=== PATIENT | female | born 1970 ===

== ENCOUNTER 2018-01-22 15:06 | Emergency (ER) | payer SELFPAY ==
[2018-01-22 15:33] VITALS: TEMP 97.8
[2018-01-22] MEDS ORDERED: Alum-Mag Hydrox-Simethicone Susp (30 mL) PO STA (15:36)
[2018-01-22] MEDS ORDERED: Sodium Chloride 0.9% 1,000 ML IV STA (15:36)
[2018-01-22 15:42] LABS: HCG,QUALITATIVE URINE NEGATIVE (NEGATIVE)
[2018-01-22] MEDS ORDERED: Sodium Chloride 0.9% 1,000 ML ONE (15:44)
[2018-01-22] MEDS ORDERED: Aluminum Hydroxide/Magnesium Hydroxide Susp (30 mL) ONE (15:44)
[2018-01-22 15:49] LABS: SQUAMOUS EPITHIAL 1 /hpf (0-5); URINE BILIRUBIN NEGATIVE (NEGATIVE); URINE BLOOD 1+ (NEGATIVE); URINE CLARITY Clear (Clear); URINE COLOR Amber (YELLOW); URINE GLUCOSE (UA) NORMAL (Normal); URINE HYALINE CAST >20 /lpf (0-2); URINE LEUKOCYTE ESTERASE NEG Leu/uL (Negative); URINE PROTEIN 1+ mg/dL (NEGATIVE)
[2018-01-22 15:57] LABS: BASO % 0.3 % (0.0-2.0); EOS # 0.1 K/uL (0.0-0.7); EOS % 1.4 % (0.0-4.0); HEMOGLOBIN 14.5 g/dL (11.0-16.0); LYMPH # 2.1 K/uL (1.0-4.3); LYMPH % 23.8 % (20.0-40.0); MEAN CELL VOLUME 86.6 fL (81.0-99.0); MEAN CORPUSCULAR HEMOGLOBIN 29.1 pg (27.0-31.0); MEAN CORPUSCULAR HGB CONC 33.6 g/dL (33.0-37.0); MEAN PLATELET VOLUME 9.4 fL (7.2-11.7); MONO # 0.3 K/uL (0.0-0.8); MONO % 3.6 % (0.0-10.0); NEUT # 6.3 K/uL (1.8-7.0); NEUT % 70.9 % (50.0-75.0); NRBC % 0.1 % (0.0-2.0); RBC 4.99 Mil/uL (3.80-5.20); RED CELL DISTRIBUTION WIDTH 12.8 % (11.5-14.5); WHITE BLOOD COUNT 8.8 K/uL (4.8-10.8)
[2018-01-22 16:18] LABS: ALB/GLOB RATIO 1.4 (1.0-2.1); ALBUMIN 4.6 g/dL (3.5-5.0); ALT/SGPT 68 U/L (9-52); AST/SGOT 34 U/L (14-36); BLOOD UREA NITROGEN 13 mg/dL (7-17); CALCIUM 9.4 mg/dl (8.6-10.4); GFR NON-AFRICAN AMERICAN > 60; LIPASE 121 U/L (23-300)
--- NOTE | 2018-01-22 16:31 | C.PDOC ---
History Of Present Illness 47 y/o female with history of HTN presents to ED with c/o diffuse abdominal pain intermittently for 2 days associated with nausea, x4 episodes of non bloody and non bilious vomiting. Patient denies fever, chills, chest pain, sob, diarrhea, constipation, dysuria or any other complaints at this time. Time Seen by Provider: 01/22/18 15:10 Chief Complaint (Nursing): Abdominal Pain History Per: Patient History/Exam Limitations: no limitations Onset/Duration Of Symptoms: Days Current Symptoms Are (Timing): Still Present Location Of Pain/Discomfort: Diffuse Past Medical History Reviewed: Historical Data, Nursing Documentation, Vital Signs Vital Signs: Last Vital Signs Temp 97.8 F 01/22/18 15:32 Pulse 66 01/22/18 15:32 Resp 20 01/22/18 15:32 BP 133/83 01/22/18 15:32 Pulse Ox 98 01/22/18 15:32 - Medical History PMH: HTN Surgical History: No Surg Hx Family History: States: No Known Family Hx - Social History Hx Alcohol Use: No Hx Substance Use: No - Immunization History Hx Tetanus Toxoid Vaccination: No Hx Influenza Vaccination: No Hx Pneumococcal Vaccination: No Review Of Systems Except As Marked, All Systems Reviewed And Found Negative. Constitutional: Negative for: Fever, Chills Gastrointestinal: Positive for: Nausea, Vomiting, Abdominal Pain Physical Exam - Physical Exam Additional Physical Exam Comments: Constitutional: No acute distress. Obese appearing Head: Normocephalic. Atraumatic. Eyes: PERRL. ENT: Moist mucous membranes. Neck: Supple. Cardiovascular: Regular rate. Radial pulse 2+ bilaterally. Chest: No tenderness. Respiratory: Clear to auscultation bilaterally. GI: Soft. diffuse abdomen tenderness more on epigastric and RLQ. Back: No CVA tenderness. Musculoskeletal: No tenderness or swelling of extremities. Skin: No rash. Neurologic: Alert, no focal deficit ED Course And Treatment - Laboratory Results Result Diagrams: 01/22/18 15:42 01/22/18 15:42 O2 Sat by Pulse Oximetry: 98 (RA) Pulse Ox Interpretation: Normal Medical Decision Making Medical Decision Making: Plan: CT abd/pelvis with IV contrast, Maalox, Pepcid, Zofran, IV fluids, Urine culture CT scan abd/pelvis IMPRESSION: Moderate segmental dilatation of fluid-filled mid small bowel loop in the left mid abdomen with fecalization of small bowel contents. Fluid in the ascending and transverse colon and distal descending colon. Findings may represent nonspecific acute infectious/inflammatory enterocolitis. No bowel obstruction. Sigmoid diverticulosis without CT evidence for acute diverticulitis. Moderate hepatomegaly and fatty liver. Small sliding hiatal hernia. Potassium supplemented. Discharged home, f/u PMD, return to ED for worsening pain, fever, vomiting, or any other problem. Disposition - Disposition Referrals: [facility] [Outside] Disposition: HOME/ ROUTINE Disposition Time: 18:00 Condition: STABLE Prescriptions: levoFLOXacin [Levaquin] 1 tab PO DAILY #10 tab Metronidazole [Flagyl] 500 mg PO Q8 #30 tab Instructions: Diarrhea in Adolescents and Adults Forms: [facility] (Albanian) - Clinical Impression Clinical Impression: Enteritis - Scribe Statement The provider has reviewed the documentation as recorded by the Tarynibsergio Orellana All medical record entries made by the Tarynibsergio were at my direction and personally dictated by me. I have reviewed the chart and agree that the record accurately reflects my personal performance of the history, physical exam, medical decision making, and the department course for this patient. I have also personally directed, reviewed, and agree with the discharge instructions and disposition.
[2018-01-22] MEDS ORDERED: Iohexol 300 100 ML IJ ONE (17:09)
--- NOTE | 2018-01-22 17:57 | CT ---
Date of service: 01/22/2018 PROCEDURE: CT Abdomen and Pelvis with contrast HISTORY: abd pain, vomiting, epigastric/RLQ tenderness COMPARISON: None available. TECHNIQUE: CT scan of the abdomen and pelvis was performed after administration of intravenous contrast. Oral contrast was not administered. Coronal and sagittal reformatted images were obtained. Contrast dose: Radiation dose: Total exam DLP = 1063.52 mGy-cm. This CT exam was performed using one or more of the following dose reduction techniques: Automated exposure control, adjustment of the mA and/or kV according to patient size, and/or use of iterative reconstruction technique. FINDINGS: LOWER THORAX: The visualized lungs are clear. LIVER: Moderate hepatomegaly and fatty liver. No gross lesion or ductal dilatation. GALLBLADDER AND BILE DUCTS: Surgically absent. PANCREAS: Normal in size with homogeneous enhancement. No gross lesion or ductal dilatation. SPLEEN: Normal in size and appearance. ADRENALS: No discrete nodule. KIDNEYS AND URETERS: Normal in size with homogeneous enhancement. No hydronephrosis. No solid mass. VASCULATURE: No aortic aneurysm. BOWEL: Evaluation of the bowel is limited in the absence of oral contrast. The proximal small bowel loops are normal in caliber. There is segmental dilatation of fluid-filled mid small bowel loop in the left mid abdomen with fecalization of small bowel contents. The distal small bowel loops are normal in caliber. There is fluid in the ascending and transverse colon. There fluid in the distal descending colon. There is sigmoid diverticulosis without CT evidence for acute diverticulitis P APPENDIX: Normal appendix. PERITONEUM: No free fluid. No free air. LYMPH NODES: No enlarged lymph nodes. BLADDER: Well distended and normal in appearance. REPRODUCTIVE: The uterus is surgically absent. BONES: No acute fracture. There is diffuse bone demineralization and multilevel degenerative changes in the spine. OTHER FINDINGS: There is a small sliding hiatal hernia. IMPRESSION: Moderate segmental dilatation of fluid-filled mid small bowel loop in the left mid abdomen with fecalization of small bowel contents. Fluid in the ascending and transverse colon and distal descending colon. Findings may represent nonspecific acute infectious/inflammatory enterocolitis. No bowel obstruction. Sigmoid diverticulosis without CT evidence for acute diverticulitis. Moderate hepatomegaly and fatty liver. Small sliding hiatal hernia.
[2018-01-22 18:08] VITALS: BP 167/92; PULSE 76; RESP 18
[2018-01-22] MEDS ORDERED: Potassium Chloride 20 mEq ER Tab PO STA (18:10)
[2018-01-22 18:12] VITALS: O2SAT 98
[2018-01-22] MEDS ORDERED: Potassium Chloride 20 mEq ER Tab PO ONE (18:19)
== END 2018-01-22 18:33 | disposition home or self-care (01) ==
LOC: C.ER 15:06
DX: K52.9 Noninfective gastroenteritis and colitis, unspecified (principal); I10 Essential (primary) hypertension
CPT/HCPCS: 74177; 80053; 81001; 83690; 84703; 85025; 87086; 96361; 96374; 96375; 99285; J2405; J7030; Q9967

== ENCOUNTER 2018-01-23 12:05 | Inpatient (IN) | payer SELFPAY ==
--- NOTE | 2018-01-23 12:46 | C.PDOC ---
History Of Present Illness 47 y/o female presents to the ER complaining of diffuse abdominal pain which has been present for the past 3 days. I evaluated patient in [facility] for abdominal pain and vomiting yesterday. At the time, she had unremarkable bloodwork and CT Scan which showed diverticulosis with no other acute findings. Patient states that she continues to have abdominal pain. Patient is also complaining of rectal bleeding which began last night. Currently, patient denies having fever, chills, nausea, and vomiting. Time Seen by Provider: 01/23/18 12:17 Chief Complaint (Nursing): GI Problem History Per: Patient History/Exam Limitations: no limitations Onset/Duration Of Symptoms: Days Current Symptoms Are (Timing): Still Present Severity: Moderate Past Medical History Reviewed: Historical Data, Nursing Documentation, Vital Signs Vital Signs: Last Vital Signs Temp 98.2 F 01/23/18 12:09 Pulse 84 01/23/18 12:09 Resp 16 01/23/18 12:09 BP 123/63 01/23/18 12:09 Pulse Ox 100 01/23/18 12:09 - Medical History PMH: HTN Other Surgeries: Hx of surgeries Family History: States: No Known Family Hx - Social History Hx Alcohol Use: No Hx Substance Use: No - Immunization History Hx Tetanus Toxoid Vaccination: No Hx Influenza Vaccination: No Hx Pneumococcal Vaccination: No Review Of Systems Except As Marked, All Systems Reviewed And Found Negative. Constitutional: Negative for: Fever, Chills Gastrointestinal: Positive for: Abdominal Pain, Hematochezia. Negative for: Nausea, Vomiting Physical Exam - Physical Exam Additional Physical Exam Comments: Constitutional: No acute distress. Head: Normocephalic. Atraumatic. Eyes: PERRL. ENT: Moist mucous membranes. Neck: Supple. Cardiovascular: Regular rate. Radial pulse 2+ bilaterally. Chest: No tenderness. Respiratory: Clear to auscultation bilaterally. GI: Soft. Nontender. Nondistended. Rectal: Gross Red Blood Back: No CVA tenderness. Musculoskeletal: No tenderness or swelling of extremities. Skin: No rash. Neurologic: Alert, no focal deficit. ED Course And Treatment - Laboratory Results Result Diagrams: 01/23/18 20:35 01/23/18 13:00 ECG: Interpreted By Me, Viewed By Me ECG Rhythm: Sinus Rhythm ECG Interpretation: Normal Interpretation Of ECG: NSR with no ST elevations/depressions Rate From EC O2 Sat by Pulse Oximetry: 100 (RA) Pulse Ox Interpretation: Normal Medical Decision Making Medical Decision Making: Plan: --Labs Dr. Mcdowell accepts patient to hospitalist service. Disposition - Disposition Disposition: HOSPITALIZED Disposition Time: 14:12 Condition: GUARDED - Clinical Impression Clinical Impression: Gastrointestinal hemorrhage - Scribe Statement The provider has reviewed the documentation as recorded by the Mel Briceño Provider Attestation: All medical record entries made by the Tarynibsergio were at my direction and personally dictated by me. I have reviewed the chart and agree that the record accurately reflects my personal performance of the history, physical exam, medical decision making, and the department course for this patient. I have also personally directed, reviewed, and agree with the discharge instructions and disposition.
[2018-01-23 13:04] LABS: BASO % 0.3 % (0.0-2.0); EOS % 0.2 % (0.0-4.0); HEMOGLOBIN 14.8 g/dL (11.0-16.0); LYMPH # 2.2 K/uL (1.0-4.3); LYMPH % 16.5 % (20.0-40.0); MEAN CELL VOLUME 85.1 fL (81.0-99.0); MEAN CORPUSCULAR HEMOGLOBIN 28.9 pg (27.0-31.0); MEAN PLATELET VOLUME 9.4 fL (7.2-11.7); MONO # 0.8 K/uL (0.0-0.8); NEUT # 10.4 K/uL (1.8-7.0); NRBC % 0.1 % (0.0-2.0); RBC 5.11 Mil/uL (3.80-5.20); RED CELL DISTRIBUTION WIDTH 12.9 % (11.5-14.5)
[2018-01-23 13:05] LABS: WHITE BLOOD COUNT 13.5 K/uL (4.8-10.8)
[2018-01-23 13:14] LABS: INR 1.1; PROTHROMBIN TIME 11.9 SECONDS (9.7-12.2)
[2018-01-23 13:17] LABS: ALB/GLOB RATIO 1.3 (1.0-2.1); ALBUMIN 4.4 g/dL (3.5-5.0); ALT/SGPT 62 U/L (9-52); AST/SGOT 27 U/L (14-36); BLOOD UREA NITROGEN 11 mg/dL (7-17); CALCIUM 9.2 mg/dl (8.6-10.4); GFR NON-AFRICAN AMERICAN > 60; LIPASE 92 U/L (23-300)
--- NOTE | 2018-01-23 15:14 | CP.PCM.HP ---
History of Present Illness - History of Present Illness History of Present Illness: PGY-[address] and Physical [address] Mcdowell Patient is a 47 year old female with PMHx HTN, cholecystitis, who presents with nausea, abdominal, diarrhea, and rectal bleeding. Patient presented to [facility] ED on 01/22 with abdominal pain and NBNB vomiting. Patient was prescribed levofloxacin and flagyl and sent home, though did not fill the prescriptions prior to returning to ED today. After leaving ED patient states she continued t o have pain and went to use the toilet and noticed red blood. Patient went to PMD who performed a rectal exam and copious bright red blood came out and patient was subsequently sent to ED. She continues to have dark brown loose stools with jelly-like consistency, but also will have bouts where she goes to the toilet and only blood comes out. Patient states the blood is more light pink than dark red. She no longer feels nauseous and has not vomited, but does continue to have abdominal pain that is most severe in the upper abdomen, but diffuse. Patient has abdominal pain while moving bowels, but does not have any pain in the anus/rectum. Pain is relieved following BMs. Patient also feels dizzy like the room is spinning. Patient did take two Aleve following ED, though she does not take NSAIDs regularly. Patient denies sick contacts or recent travel. She is a vegetarian. Denies any red-colored foods, otc supplements including mutlivitamins, mag, or Fe. Denies eating jake lettuce. Denies any AC/anti-platelet meds. Pt went through menopause in 2016 and has no vaginal bleeding. Has never experienced similar rectal bleeding. Of note, she does also admit to increased consipation over the last 2-3 months. She denies dysuria, flank pain, fevers, back pain, chest pain, palpitations. Medical history: HTN, cholecystitis s/p cholecystectomy, uterine fibroids (and possible ovarian cyst) s/p hysterectomy and L unilateral oopherectomy (est 2016) Surgical history: cholecystectomy, uterine fibroids (and possible ovarian cyst) s/p hysterectomy and L unilateral oopherectomy Allergies: Morphine (anaphylaxis) Hospitalizations: For surgeries listed Allergies: Morphine ("can't breathe") Social: [employer], lives at home with and children, denies smoking, alcohol, drugs. Fam hx: Sister - bowel surgery Home meds: Metoprolol 50 PO daily, Amlodipine 10 mg PO daily, HCTZ 25 mg PO daily PMD: [facility] Code: Full Code Present on Admission - Present on Admission Any Indicators Present on Admission: No Review of Systems - Constitutional Constitutional: Chills. absent: Fatigue, Fever, Weight Loss - EENT Eyes: absent: Blurred Vision, Loss of Vision Nose/Mouth/Throat: absent: Nasal Congestion, Nasal Discharge - Cardiovascular Cardiovascular: absent: Chest Pain, Chest Pain at Rest - Respiratory Respiratory: absent: Cough, Dyspnea, Hemoptysis - Gastrointestinal Gastrointestinal: Abdominal Pain (Diffuse abdominal pain, worse in upper abdomen, non-radiating), Constipation, Diarrhea. absent: Coffee Ground Emesis, Melena, Nausea Additional comments: Bright red blood per rectum - Genitourinary Genitourinary: absent: Dysuria, Flank Pain, Urinary Frequency - Menstruation Menstruation: Post Menopausal - Musculoskeletal Musculoskeletal: absent: Back Pain, Muscle Weakness - Neurological Neurological: Dizziness (spinning sensation). absent: Numbness, Paresthesias - Psychiatric Psychiatric: absent: Anxiety, Depression - Endocrine Endocrine: Polydipsia. absent: Palpitations, Polyphagia, Polyuria Past Patient History - Past Social History Smoking Status: Never Smoked - CARDIAC Hx Hypertension: Yes - PSYCHIATRIC Hx Substance Use: No - SURGICAL HISTORY Hx Hysterectomy: Yes - ANESTHESIA Hx Anesthesia: Yes Hx Anesthesia Reactions: No Meds Allergies/Adverse Reactions: Allergies Allergy/AdvReac Type Severity Reaction Status Date / Time morphine Allergy Unknown ANAPHYLAXIS Verified 01/23/18 16:18 Physical Exam - Constitutional Appears: Non-toxic, In Acute Distress - Head Exam Head Exam: ATRAUMATIC, NORMAL INSPECTION - Eye Exam Eye Exam: EOMI, Normal appearance - ENT Exam ENT Exam: Mucous Membranes Dry - Respiratory Exam Respiratory Exam: Clear to Auscultation Bilateral, NORMAL BREATHING PATTERN. absent: Rales, Rhonchi, Wheezes - Cardiovascular Exam Cardiovascular Exam: REGULAR RHYTHM, +S1, +S2 - GI/Abdominal Exam GI & Abdominal Exam: Hypoactive Bowel Sounds, Soft, Tenderness (Diffuse abdominal tenderness, worse in upper abdomin. No rebound or gaurding.). absent: Distended, Hernia, Rebound - Rectal Exam Additional comments: Full rectal exam deferred as patient had rectal exam done yesterday with overt blood. External exam shows no external hemorrhoids, no visible blood, normal appearing. - Extremities Exam Extremities exam: Positive for: normal inspection. Negative for: pedal edema, tenderness - Neurological Exam Neurological exam: Alert, CN II-XII Intact, Oriented x3 - Psychiatric Exam Psychiatric exam: Normal Affect Additional comments: Appears nervous about situation - Skin Skin Exam: Dry, Intact, Normal Color, Warm Results - Vital Signs Recent Vital Signs: Last Vital Signs Temp 98.3 F 01/23/18 14:17 Pulse 75 01/23/18 14:17 Resp 16 01/23/18 14:17 BP 118/77 01/23/18 14:17 Pulse Ox 100 01/23/18 14:17 - Labs Result Diagrams: 01/23/18 13:00 01/23/18 13:00 Labs: Laboratory Results - last 24 hr 01/23/18 01/23/18 01/23/18 13:00 13:00 13:00 WBC 13.5 H D RBC 5.11 Hgb 14.8 Hct 43.5 MCV 85.1 MCH 28.9 MCHC 34.0 RDW 12.9 Plt Count 298 MPV 9.4 Neut % (Auto) 77.0 H Lymph % (Auto) 16.5 L Mcdowell % (Auto) 6.0 Eos % (Auto) 0.2 Baso % (Auto) 0.3 Neut # (Auto) 10.4 H Lymph # (Auto) 2.2 Mcdowell # (Auto) 0.8 Eos # (Auto) 0.0 Baso # (Auto) 0.0 PT 11.9 INR 1.1 APTT 33 Sodium 135 Potassium 3.6 Chloride 95 L Carbon Dioxide 26 Anion Gap 18 BUN 11 Creatinine 0.7 Est GFR ( Amer) > 60 Est GFR (Non-Af Amer) > 60 Random Glucose 132 H Calcium 9.2 Total Bilirubin 1.9 H AST 27 ALT 62 H Alkaline Phosphatase 95 Total Protein 7.7 Albumin 4.4 Globulin 3.3 Albumin/Globulin Ratio 1.3 Lipase 92 Blood Type Antibody Screen 01/23/18 13:23 WBC RBC Hgb Hct MCV MCH MCHC RDW Plt Count MPV Neut % (Auto) Lymph % (Auto) Mcdowell % (Auto) Eos % (Auto) Baso % (Auto) Neut # (Auto) Lymph # (Auto) Mcdowell # (Auto) Eos # (Auto) Baso # (Auto) PT INR APTT Sodium Potassium Chloride Carbon Dioxide Anion Gap BUN Creatinine Est GFR ( Amer) Est GFR (Non-Af Amer) Random Glucose Calcium Total Bilirubin AST ALT Alkaline Phosphatase Total Protein Albumin Globulin Albumin/Globulin Ratio Lipase Blood Type O POSITIVE Antibody Screen Negative Assessment & Plan - Assessment and Plan (Free Text) Assessment: 47 year old female with PMHx HTN, cholecystitis s/p cholecystectomy presents with abdominal pain and bloody bowel movements Plan: Bloody Stool and abdominal pain, assess for cause of potential acute GI bleed: - Admitted to telemetry - GI consulted, Dr. Velázquez. Help appreciated. - Surgery consulted, Dr. Campoverde. Help appreciated - HgB 14.5, f/u repeat CBC 11:59, 09:00 - CT abd/pelvis with IV contrast only 01/22: Moderate segmental dilation of fluid-filled mid small bowel loop in the left mid abdomen with fecalization of small bowel contents. Fluid in the ascending and tranverse colon and distal descending colon. Findings may represent nonspecific acute infectious/inflammatory enterocolitis. No bowel obstruction. Sigmoid diverticulosis without diverticulitis. Moderate hepatomegaly and fatty liver. Small sliding hiatal hernia. - ABx - -Cipro 200 mg IV Q12 - -Flagyl 500 mg IV Q8 - NS @ 125 mL/hr - Stool studies: O and P, leukocytes, salmonella, shigella, e coli - f/u - Cultures - Stool and blood cultures - f/u - NPO - Amylase, lipase - CEA - Coags HTN: - Home meds held, pt kept NPO PPx: GI: Protonix 40 mg PO IV daily DVT: AC contraindicated - SCDs Assessment and Plan d/w Dr. July Yuan, PGY-1
[2018-01-23] MEDS ORDERED: Sodium Chloride 0.9% 1,000 ML IV SCH (16:15)
[2018-01-23] MEDS: Sodium Chloride 0.9% 1,000 ML IV SCH (16:56)
[2018-01-23] MEDS: Ciprofloxacin 200mg/100ml D5W 100 ML IVPB SCH (18:06)
--- NOTE | 2018-01-23 18:10 | CP.PCM.CON ---
<Ariel Wooten - Last Filed: 01/23/18 19:25> History of Present Illness - History of Present Illness History of Present Illness: Surgery Consult note. Dr. Campoverde service CC: GI bleeding. r/o ischemic colitis. 47yo F with PMHx of HTN, ovarian cytsts presented to the ED today for acute rec chencho bleed. Patient had been at [facility] ED 01/22 (yesterday) for abdominal pain and non-billious and non-bloody vomiting. CT abdomen on 01/22 showed diverticulosis wihtout diverticulitis, moderate segmental dilation, and no bowel obstruction. She was prescribed levofloxacin and flagyl and sent home. At home patient had an episode of dark bloody, mucoid stool yesterday night. She went to see her Primary Care physician this morning who sent her to the ED for further evaluation. She reports having bloody bowel movements with abdominal pain multiple times today. She reports weakness and dizziness, diarrhea and abdominal pain in LLQ. She denies n/v since her last episode (01/22), chest pain, palpit ations, SOB, constipation, dysuria, and flank pain. PMHx: HTN, cholecystitis s/p lap lyle, uterine fibroids s/p removal, and ovarian cyts PSHx: Cholecystectomy, hysterectomy, L unilateral oopherectomy Allergies: Morphine Social: denies tobacco, alcohol, and recreational drugs Fam Hx: All females had hysterectomy due to fibroids Review of Systems - Review of Systems All systems: reviewed and no additional remarkable complaints except - Constitutional Constitutional: absent: Chills, Fever - EENT Eyes: absent: Blurred Vision, Change in Vision Ears: absent: Tinnitus, Abnormal Hearing Nose/Mouth/Throat: absent: Nasal Congestion - Cardiovascular Cardiovascular: Diaphoresis. absent: Chest Pain, Dyspnea on Exertion, Paroxysmal Nocturnal Dyspnea, Rapid Heart Rate - Respiratory Respiratory: absent: Cough, Dyspnea - Gastrointestinal Gastrointestinal: Abdominal Pain, Diarrhea, Hematochezia, Nausea, Vomiting. absent: Hematemesis - Genitourinary Genitourinary: absent: Dysuria, Urinary Frequency, Urinary Urgency - Musculoskeletal Musculoskeletal: absent: Numbness, Tingling Past Patient History - Past Medical History & Family History Past Medical History?: Yes Past Family History: Reviewed and not pertinent - Past Social History Smoking Status: Never Smoked Alcohol: None Drugs: Denies Home Situation {Lives}: With Family - CARDIAC Hx Hypertension: Yes - PULMONARY Hx Respiratory Disorders: No - NEUROLOGICAL Hx Neurological Disorder: No - HEENT Hx HEENT Problems: No - RENAL Hx Chronic Kidney Disease: No - ENDOCRINE/METABOLIC Hx Endocrine Disorders: No - HEMATOLOGICAL/ONCOLOGICAL Hx Blood Disorders: No - INTEGUMENTARY Hx Dermatological Problems: No - MUSCULOSKELETAL/RHEUMATOLOGICAL Hx Musculoskeletal Disorders: No Hx Falls: No - GASTROINTESTINAL Hx Gastrointestinal Disorders: No - GENITOURINARY/GYNECOLOGICAL Hx Genitourinary Disorders: No - PSYCHIATRIC Hx Substance Use: No - SURGICAL HISTORY Hx Hysterectomy: Yes - ANESTHESIA Hx Anesthesia: Yes Hx Anesthesia Reactions: No Meds Allergies/Adverse Reactions: Allergies Allergy/AdvReac Type Severity Reaction Status Date / Time morphine Allergy Unknown ANAPHYLAXIS Verified 01/23/18 16:18 - Medications Medications: Current Medications Sodium Chloride (Sodium Chloride 0.9%) 1,000 mls @ 125 mls/hr IV .Q8H [facility] Last Admin: 01/23/18 16:56 Dose: 125 mls/hr Ciprofloxacin (Cipro 200mg/100ml D5w) 100 mls @ 67 mls/hr IVPB Q12H [facility]; Protocol Last Admin: 01/23/18 18:06 Dose: 67 mls/hr Metronidazole (Flagyl) 500 mg in 100 mls @ 100 mls/hr IVPB Q8H [facility]; Protocol Ondansetron HCl (Zofran Inj) 4 mg IVP Q6 PRN PRN Reason: Nausea/Vomiting Pantoprazole Sodium (Protonix Inj) 40 mg IVP DAILY [facility] Physical Exam - Constitutional Appears: Well, Non-toxic, No Acute Distress - Head Exam Head Exam: ATRAUMATIC, NORMOCEPHALIC - Eye Exam Eye Exam: EOMI - ENT Exam ENT Exam: Mucous Membranes Moist - Respiratory Exam Respiratory Exam: Clear to Auscultation Bilateral. absent: Rales, Rhonchi, Wheezes, Respiratory Distress - Cardiovascular Exam Cardiovascular Exam: REGULAR RHYTHM. absent: JVD - GI/Abdominal Exam GI & Abdominal Exam: Normal Bowel Sounds, Soft, Tenderness. absent: Distended, Guarding, Rebound, Rigid Additional comments: Tenderness to deep palpation to the LLQ. No rebound, no guarding. Soft, non- distended. - Rectal Exam Rectal Exam: NORMAL INSPECTION Additional comments: Normal external exam. No external or internal hemorrhoids noted. No stool in the rectal vault. Some blood tinged mucus noted. No evidence of active bleeding. - Extremities Exam Extremities exam: Positive for: normal inspection. Negative for: calf tenderness - Neurological Exam Neurological exam: Alert, Oriented x3 - Psychiatric Exam Psychiatric exam: Normal Affect, Normal Mood - Skin Skin Exam: Dry, Intact, Normal Color, Warm Results - Vital Signs Recent Vital Signs: Last Vital Signs Temp 98.3 F 01/23/18 16:34 Pulse 72 01/23/18 16:34 Resp 20 01/23/18 16:34 BP 140/89 01/23/18 16:34 Pulse Ox 97 01/23/18 16:34 - Labs Result Diagrams: 01/23/18 13:00 01/23/18 13:00 Labs: Laboratory Results - last 24 hr 01/23/18 01/23/18 01/23/18 13:00 13:00 13:00 WBC 13.5 H D RBC 5.11 Hgb 14.8 Hct 43.5 MCV 85.1 MCH 28.9 MCHC 34.0 RDW 12.9 Plt Count 298 MPV 9.4 Neut % (Auto) 77.0 H Lymph % (Auto) 16.5 L [place] % (Auto) 6.0 Eos % (Auto) 0.2 Baso % (Auto) 0.3 Neut # (Auto) 10.4 H Lymph # (Auto) 2.2 [place] # (Auto) 0.8 Eos # (Auto) 0.0 Baso # (Auto) 0.0 PT 11.9 INR 1.1 APTT 33 Sodium 135 Potassium 3.6 Chloride 95 L Carbon Dioxide 26 Anion Gap 18 BUN 11 Creatinine 0.7 Est GFR ( Amer) > 60 Est GFR (Non-Af Amer) > 60 Random Glucose 132 H Calcium 9.2 Total Bilirubin 1.9 H AST 27 ALT 62 H Alkaline Phosphatase 95 Total Protein 7.7 Albumin 4.4 Globulin 3.3 Albumin/Globulin Ratio 1.3 Lipase 92 Blood Type Antibody Screen 01/23/18 13:23 WBC RBC Hgb Hct MCV MCH MCHC RDW Plt Count MPV Neut % (Auto) Lymph % (Auto) [place] % (Auto) Eos % (Auto) Baso % (Auto) Neut # (Auto) Lymph # (Auto) [place] # (Auto) Eos # (Auto) Baso # (Auto) PT INR APTT Sodium Potassium Chloride Carbon Dioxide Anion Gap BUN Creatinine Est GFR ( Amer) Est GFR (Non-Af Amer) Random Glucose Calcium Total Bilirubin AST ALT Alkaline Phosphatase Total Protein Albumin Globulin Albumin/Globulin Ratio Lipase Blood Type O POSITIVE Antibody Screen Negative Assessment & Plan - Assessment and Plan (Free Text) Assessment: 47yo F with GI bleeding, likely diverticular source with possible enterocolitis. - CT scan from 01/22 noted. - Hb 14.8 (stable). Non-tachycardic, normotensive. Plan: - NPO - IVF - Cont IV Abx for possible infections colitis - low suspicion for ischemic colitis. - continue serial abd exams - H/H q6h - If patient has any more bloody bowel movements or has dropping hemoglobin, perform RBC bleeding scan. - we will follow - f/u GI team recs Further recs as per Dr. Nirali Wooten PGY2 surgery <Kee Campoverde - Last Filed: 01/25/18 19:46> Meds - Medications Medications: Current Medications Piperacillin Sod/Tazobactam Sod (Zosyn 3.375 Gm Iv Premix) 3.375 gm in 50 mls @ 100 mls/hr IVPB Q6H [facility]; Protocol Last Admin: 01/25/18 18:45 Dose: 100 mls/hr Potassium Chloride 20 meq/ (Sodium Chloride) 1,010 mls @ 125 mls/hr IV .Q8H5M [facility] Last Admin: 01/25/18 12:00 Dose: Not Given Ketorolac Tromethamine (Toradol) 15 mg IVP Q6 PRN PRN Reason: Pain, severe (8-10) Last Admin: 01/25/18 13:03 Dose: 15 mg Ondansetron HCl (Zofran Inj) 4 mg IVP Q6 PRN PRN Reason: Nausea/Vomiting Last Admin: 01/25/18 16:28 Dose: 4 mg Pantoprazole Sodium (Protonix Inj) 40 mg IVP DAILY [facility] Last Admin: 01/25/18 10:34 Dose: 40 mg Results - Vital Signs Recent Vital Signs: Last Vital Signs Temp 98.0 F 01/25/18 15:44 Pulse 93 H 01/25/18 18:50 Resp 18 01/25/18 15:44 BP 130/82 01/25/18 15:44 Pulse Ox 98 01/25/18 15:44 - Labs Result Diagrams: 01/25/18 07:24 01/25/18 07:24 Labs: Laboratory Results - last 24 hr 01/24/18 01/25/18 01/25/18 21:36 07:24 07:24 WBC 8.8 RBC 4.24 Hgb 12.5 Hct 36.8 MCV 86.7 MCH 29.4 MCHC 33.9 RDW 13.1 Plt Count 224 MPV 9.2 Sodium 137 Potassium 3.8 Chloride 105 Carbon Dioxide 24 Anion Gap 12 BUN 8 Creatinine 0.7 Est GFR ( Amer) > 60 Est GFR (Non-Af Amer) > 60 POC Glucose (mg/dL) Random Glucose 102 Calcium 8.4 L Phosphorus 2.6 Magnesium 1.9 Total Bilirubin 1.4 H AST 16 ALT 46 Alkaline Phosphatase 68 Total Protein 6.0 L Albumin 3.2 L Globulin 2.8 Albumin/Globulin Ratio 1.1 Urine Color Straw Urine Clarity Clear Urine pH 6.0 Ur Specific [place] 1.009 Urine Protein Negative Urine Glucose (UA) Normal Urine Ketones Trace Urine Blood Negative Urine Nitrate Negative Urine Bilirubin Negative Urine Urobilinogen Normal Ur Leukocyte Esterase Trace Urine WBC (Auto) 1 Urine RBC (Auto) < 1 Ur Squamous Epith Cells < 1 Urine Bacteria Rare C. difficile Ag & Toxin 01/25/18 01/25/18 12:10 15:20 WBC RBC Hgb Hct MCV MCH MCHC RDW Plt Count MPV Sodium Potassium Chloride Carbon Dioxide Anion Gap BUN Creatinine Est GFR ( Amer) Est GFR (Non-Af Amer) POC Glucose (mg/dL) 89 Random Glucose Calcium Phosphorus Magnesium Total Bilirubin AST ALT Alkaline Phosphatase Total Protein Albumin Globulin Albumin/Globulin Ratio Urine Color Urine Clarity Urine pH Ur Specific [place] Urine Protein Urine Glucose (UA) Urine Ketones Urine Blood Urine Nitrate Urine Bilirubin Urine Urobilinogen Ur Leukocyte Esterase Urine WBC (Auto) Urine RBC (Auto) Ur Squamous Epith Cells Urine Bacteria C. difficile Ag & Toxin Negative Attending/Attestation - Attestation I have personally seen and examined this patient.: Yes I have fully participated in the care of the patient.: Yes I have reviewed all pertinent clinical information: Yes Notes (Text): Pt was seen and examined at bedside Agree with above note and assessment Pt with Lower abdominal pain and Blood in stool Abdomen: soft, Tender in LLQ, Morbidly obese Labs and radiology reviewed Ass: Diverticulosis with possible Diverticulitis Plan: GI consult Bleeding Scan IV antibiotics c.w current mx H/H Q6 h Plan d.w pt in detail Risk and benefit explained in detail. .
[2018-01-23] MEDS: metroNIDAZOLE IV 500 mg/100 ml 500 MG/100 ML BAG IVPB SCH (19:28)
[2018-01-23 20:39] LABS: HEMOGLOBIN 14.1 g/dL (11.0-16.0); MEAN CELL VOLUME 85.6 fL (81.0-99.0); MEAN CORPUSCULAR HEMOGLOBIN 29.1 pg (27.0-31.0); MEAN PLATELET VOLUME 9.1 fL (7.2-11.7); RBC 4.84 Mil/uL (3.80-5.20); RED CELL DISTRIBUTION WIDTH 12.7 % (11.5-14.5); WHITE BLOOD COUNT 12.3 K/uL (4.8-10.8)
[2018-01-24 00:37] LABS: HEMOGLOBIN 13.8 g/dL (11.0-16.0); MEAN CELL VOLUME 85.3 fL (81.0-99.0); MEAN CORPUSCULAR HEMOGLOBIN 29.6 pg (27.0-31.0); MEAN CORPUSCULAR HGB CONC 34.7 g/dL (33.0-37.0); MEAN PLATELET VOLUME 9.3 fL (7.2-11.7); RBC 4.65 Mil/uL (3.80-5.20); RED CELL DISTRIBUTION WIDTH 12.9 % (11.5-14.5); WHITE BLOOD COUNT 12.3 K/uL (4.8-10.8)
[2018-01-24] MEDS: Sodium Chloride 0.9% 1,000 ML IV SCH ×4 (01:00→16:48)
[2018-01-24] MEDS: metroNIDAZOLE IV 500 mg/100 ml 500 MG/100 ML BAG IVPB SCH ×2 (03:16→10:34)
[2018-01-24] MEDS: Ciprofloxacin 200mg/100ml D5W 100 ML IVPB SCH (05:19)
[2018-01-24 07:27] LABS: HEMOGLOBIN 14.1 g/dL (11.0-16.0); MEAN CELL VOLUME 85.7 fL (81.0-99.0); MEAN CORPUSCULAR HEMOGLOBIN 29.9 pg (27.0-31.0); MEAN CORPUSCULAR HGB CONC 34.9 g/dL (33.0-37.0); MEAN PLATELET VOLUME 9.5 fL (7.2-11.7); RBC 4.73 Mil/uL (3.80-5.20); RED CELL DISTRIBUTION WIDTH 13.1 % (11.5-14.5); WHITE BLOOD COUNT 10.7 K/uL (4.8-10.8)
[2018-01-24 07:44] LABS: INR 1.1; PROTHROMBIN TIME 12.3 SECONDS (9.7-12.2)
[2018-01-24 07:59] LABS: ALB/GLOB RATIO 1.2 (1.0-2.1); ALBUMIN 3.8 g/dL (3.5-5.0); ALT/SGPT 54 U/L (9-52); AMYLASE 56 U/L (30-110); AST/SGOT 19 U/L (14-36); BLOOD UREA NITROGEN 10 mg/dL (7-17); CALCIUM 8.5 mg/dl (8.6-10.4); GFR NON-AFRICAN AMERICAN > 60; LIPASE 79 U/L (23-300)
--- NOTE | 2018-01-24 09:01 | CP.PCM.PN ---
<Ariel Wooten - Last Filed: 01/24/18 08:58> Subjective - Date & Time of Evaluation Date of Evaluation: 01/24/18 Time of Evaluation: 07:10 - Subjective Subjective: Surgery Progress note. Dr. Campoverde service Pt seen and examined at bedside. No acute events overnight. Reports two bowel movements with some clots overnight but states that it has been improving. Abd pain still present but improving. No N/V. No new complaints. Objective - Vital Signs/Intake and Output Vital Signs (last 24 hours): Temp Pulse Resp BP Pulse Ox 98.2 F 94 H 20 144/84 96 01/24/18 07:25 01/24/18 08:15 01/24/18 07:25 01/24/18 07:25 01/24/18 07:25 Intake and Output: 01/24/18 01/24/18 06:59 18:59 Intake Total 600 Balance 600 - Medications Medications: Current Medications Sodium Chloride (Sodium Chloride 0.9%) 1,000 mls @ 125 mls/hr IV .Q8H [facility] Last Admin: 01/24/18 02:41 Dose: 125 mls/hr Ciprofloxacin (Cipro 200mg/100ml D5w) 100 mls @ 67 mls/hr IVPB Q12H [facility]; Prot ocol Last Admin: 01/24/18 05:19 Dose: 67 mls/hr Metronidazole (Flagyl) 500 mg in 100 mls @ 100 mls/hr IVPB Q8H [facility]; Protocol Last Admin: 01/24/18 03:16 Dose: 100 mls/hr Ondansetron HCl (Zofran Inj) 4 mg IVP Q6 PRN PRN Reason: Nausea/Vomiting Pantoprazole Sodium (Protonix Inj) 40 mg IVP DAILY [facility] - Labs Labs: 01/24/18 07:20 01/24/18 07:20 PT 12.3 SECONDS (9.7-12.2) H 01/24/18 07:20 INR 1.1 01/24/18 07:20 APTT 33 SECONDS (21-34) 01/24/18 07:20 - Constitutional Appears: Well, Non-toxic, No Acute Distress - Head Exam Head Exam: ATRAUMATIC, NORMAL INSPECTION, NORMOCEPHALIC - Eye Exam Eye Exam: EOMI, Normal appearance - ENT Exam ENT Exam: Mucous Membranes Moist - Respiratory Exam Respiratory Exam: NORMAL BREATHING PATTERN. absent: Accessory Muscle Use, Respiratory Distress - Cardiovascular Exam Cardiovascular Exam: absent: JVD - GI/Abdominal Exam GI & Abdominal Exam: Soft. absent: Distended, Guarding, Rebound Additional comments: Mild left upper and left lower abd tenderness to deep palpation - Extremities Exam Extremities Exam: Normal Inspection - Neurological Exam Neurological Exam: Alert, Awake, Oriented x3 - Psychiatric Exam Psychiatric exam: Normal Affect, Normal Mood - Skin Skin Exam: Dry, Intact, Normal Color, Warm Assessment and Plan - Assessment and Plan (Free Text) Assessment: 47yo F with GI bleeding, likely diverticular source with possible enterocolitis. Plan: - low suspicion for ischemic colitis. - H/H q6h - IVF - f/u stool studies - Will need RBC bleeding scan if she has any more large bloody bowel movements or has a dropping hemoglobin - f/u GI team recs Further recs as per Dr. Nirali Wooten PGY2 surgery <Kee Campoverde - Last Filed: 01/25/18 19:49> Objective - Vital Signs/Intake and Output Vital Signs (last 24 hours): Temp Pulse Resp BP Pulse Ox 98.0 F 93 H 18 130/82 98 01/25/18 15:44 01/25/18 18:50 01/25/18 15:44 01/25/18 15:44 01/25/18 15:44 Intake and Output: 01/25/18 01/26/18 18:59 06:59 Intake Total 50 Balance 50 - Medications Medications: Current Medications Piperacillin Sod/Tazobactam Sod (Zosyn 3.375 Gm Iv Premix) 3.375 gm in 50 mls @ 100 mls/hr IVPB Q6H [facility]; Protocol Last Admin: 01/25/18 18:45 Dose: 100 mls/hr Potassium Chloride 20 meq/ (Sodium Chloride) 1,010 mls @ 125 mls/hr IV .Q8H5M [facility] Last Admin: 01/25/18 12:00 Dose: Not Given Ketorolac Tromethamine (Toradol) 15 mg IVP Q6 PRN PRN Reason: Pain, severe (8-10) Last Admin: 01/25/18 13:03 Dose: 15 mg Ondansetron HCl (Zofran Inj) 4 mg IVP Q6 PRN PRN Reason: Nausea/Vomiting Last Admin: 01/25/18 16:28 Dose: 4 mg Pantoprazole Sodium (Protonix Inj) 40 mg IVP DAILY [facility] Last Admin: 01/25/18 10:34 Dose: 40 mg - Labs Labs: 01/25/18 07:24 01/25/18 07:24 PT 12.3 SECONDS (9.7-12.2) H 01/24/18 07:20 INR 1.1 01/24/18 07:20 APTT 33 SECONDS (21-34) 01/24/18 07:20 Attending/Attestation - Attestation I have personally seen and examined this patient.: Yes I have fully participated in the care of the patient.: Yes I have reviewed all pertinent clinical information, including history, physical exam and plan: Yes Notes (Text): Pt was seen and examined at bedside Agree with above note and assessment Pt had clots on stool today Bleeding scan today HB is stable c.w current mx Plan d.w pt in detail
[2018-01-24] MEDS ORDERED: Potassium Chloride 20 mEq ER Tab PO SCH (12:30)
[2018-01-24] MEDS: Piperacill/Tazo 3.375gm in Dex 3.375 GM/50 ML BAG IVPB SCH ×3 (13:06→23:36)
--- NOTE | 2018-01-24 18:23 | CP.PCM.PN ---
<Navarro Schofield - Last Filed: 01/24/18 18:20> Subjective - Date & Time of Evaluation Date of Evaluation: 01/24/18 Time of Evaluation: 10:00 - Subjective Subjective: Medicine progress Note Patient seen and examined at bedside. She reports to have 2 more episodes of rectal bleeding this morning. She also has abdominal discomfort. Patient denies having fever, chills, shortness of breath, chest pain, nausea, vomiting, or urinary symptoms. Objective - Vital Signs/Intake and Output Vital Signs (last 24 hours): Temp Pulse Resp BP Pulse Ox 98.2 F 100 H 20 136/95 H 97 01/24/18 17:22 01/24/18 17:22 01/24/18 17:22 01/24/18 17:22 01/24/18 17:22 Intake and Output: 01/24/18 01/24/18 06:59 18:59 Intake Total 600 490 Balance 600 490 - Medications Medications: Current Medications Sodium Chloride (Sodium Chloride 0.9%) 1,000 mls @ 125 mls/hr IV .Q8H [facility] Last Admin: 01/24/18 16:48 Dose: 125 mls/hr Piperacillin Sod/Tazobactam Sod (Zosyn 3.375 Gm Iv Premix) 3.375 gm in 50 mls @ 100 mls/hr IVPB Q6H [facility]; Protocol Last Admin: 01/24/18 18:05 Dose: 100 mls/hr Ondansetron HCl (Zofran Inj) 4 mg IVP Q6 PRN PRN Reason: Nausea/Vomiting Pantoprazole Sodium (Protonix Inj) 40 mg IVP DAILY [facility] Last Admin: 01/24/18 10:34 Dose: 40 mg Potassium Chloride (K-Dur 20 Meq Er Tab) 20 meq PO DAILY [facility] Last Admin: 01/24/18 13:07 Dose: 20 meq - Labs Labs: 01/24/18 07:20 01/24/18 07:20 PT 12.3 SECONDS (9.7-12.2) H 01/24/18 07:20 INR 1.1 01/24/18 07:20 APTT 33 SECONDS (21-34) 01/24/18 07:20 - Constitutional Appears: Well, No Acute Distress - Head Exam Head Exam: ATRAUMATIC, NORMAL INSPECTION, NORMOCEPHALIC - Eye Exam Eye Exam: EOMI, Normal appearance - ENT Exam ENT Exam: Mucous Membranes Moist - Respiratory Exam Respiratory Exam: Clear to Ausculation Bilateral, NORMAL BREATHING PATTERN. absent: Wheezes, Respiratory Distress - Cardiovascular Exam Cardiovascular Exam: +S1, +S2. absent: JVD, Murmur - GI/Abdominal Exam GI & Abdominal Exam: Soft, Tenderness (left lower quadrant tenderness) - Extremities Exam Extremities Exam: Normal Inspection - Neurological Exam Neurological Exam: Alert, Awake, Oriented x3 - Psychiatric Exam Psychiatric exam: Normal Affect, Normal Mood - Skin Skin Exam: Dry, Intact, Normal Color, Warm Assessment and Plan - Assessment and Plan (Free Text) Assessment: Bloody Stool and abdominal pain, assess for cause of potential acute GI bleed: - Admitted to telemetry - GI consulted, Dr. Velázquez. Help appreciated. - Surgery consulted, Dr. Campoverde. Help appreciated - HgB 13.8 and 14.1 today - CT abd/pelvis with IV contrast only 01/22: Moderate segmental dilation of fluid-filled mid small bowel loop in the left mid abdomen with fecalization of small bowel contents. Fluid in the ascending and tranverse colon and distal descending colon. Findings may represent nonspecific acute infectious/inflammatory enterocolitis. No bowel obstruction. Sigmoid div erticulosis without diverticulitis. Moderate hepatomegaly and fatty liver. Small sliding hiatal hernia. - Zosyn 3.375gm Q6h - Stool studies: O and P, leukocytes, salmonella, shigella, e coli - f/u - Cultures - Stool f/u - Blood culture - Gram positive cocci - CEA, Amylase, lipase normal - GI bleed scan result pending HTN: - Home meds held PPx: GI: Protonix 40 mg PO IV daily DVT: AC contraindicated - SCDs <Vandana Mcdowell - Last Filed: 01/28/18 18:12> Objective - Vital Signs/Intake and Output Vital Signs (last 24 hours): Temp Pulse Resp BP Pulse Ox 98.1 F 83 20 142/76 99 01/28/18 07:14 01/28/18 07:14 01/28/18 07:14 01/28/18 07:14 01/28/18 07:14 Intake and Output: 01/28/18 01/28/18 06:59 18:59 Intake Total 600 Balance 600 - Labs Labs: 01/28/18 07:19 01/28/18 07:19 PT 12.3 SECONDS (9.7-12.2) H 01/24/18 07:20 INR 1.1 01/24/18 07:20 APTT 33 SECONDS (21-34) 01/24/18 07:20 Attending/Attestation - Attestation I have personally seen and examined this patient.: Yes I have fully participated in the care of the patient.: Yes I have reviewed all pertinent clinical information, including history, physical exam and plan: Yes Notes (Text): seen and examined Patient's diarrhea is improving Assessment and the plan discussed with the resident
[2018-01-24 22:06] LABS: SQUAMOUS EPITHIAL < 1 /hpf (0-5); URINE BACTERIA RARE (<OCC); URINE BILIRUBIN NEGATIVE (NEGATIVE); URINE BLOOD NEGATIVE (NEGATIVE); URINE CLARITY Clear (Clear); URINE COLOR Straw (YELLOW); URINE GLUCOSE (UA) NORMAL (Normal); URINE LEUKOCYTE ESTERASE TRACE Leu/uL (Negative); URINE PROTEIN NEGATIVE (NEGATIVE); URINE UROBILINOGEN NORMAL mg/dL (0.2-1.0)
[2018-01-25] MEDS: Piperacill/Tazo 3.375gm in Dex 3.375 GM/50 ML BAG IVPB SCH ×3 (05:47→18:45)
[2018-01-25 07:37] LABS: HEMOGLOBIN 12.5 g/dL (11.0-16.0); MEAN CELL VOLUME 86.7 fL (81.0-99.0); MEAN CORPUSCULAR HEMOGLOBIN 29.4 pg (27.0-31.0); MEAN CORPUSCULAR HGB CONC 33.9 g/dL (33.0-37.0); MEAN PLATELET VOLUME 9.2 fL (7.2-11.7); RBC 4.24 Mil/uL (3.80-5.20); RED CELL DISTRIBUTION WIDTH 13.1 % (11.5-14.5); WHITE BLOOD COUNT 8.8 K/uL (4.8-10.8)
[2018-01-25 08:00] LABS: ALB/GLOB RATIO 1.1 (1.0-2.1); ALBUMIN 3.2 g/dL (3.5-5.0); ALT/SGPT 46 U/L (9-52); AST/SGOT 16 U/L (14-36); BLOOD UREA NITROGEN 8 mg/dL (7-17); CALCIUM 8.4 mg/dl (8.6-10.4); GFR NON-AFRICAN AMERICAN > 60
--- NOTE | 2018-01-25 08:25 | CP.PCM.PN ---
<Trupti Teran - Last Filed: 01/25/18 08:21> Subjective - Date & Time of Evaluation Date of Evaluation: 01/25/18 Time of Evaluation: 08:21 - Subjective Subjective: Surgery: Dr. Campoverde Pt seen and examined. No acute overnight events. Pt states she has had no more episodes of bloody BM since yesterday morning. She was started on CLD yesterday which she states she tolerated a little. Denies nausea/vomiting, fevers/chills/dizziness. Objective - Vital Signs/Intake and Output Vital Signs (last 24 hours): Temp Pulse Resp BP Pulse Ox 98.1 F 89 20 117/69 97 01/24/18 23:20 01/25/18 07:54 01/24/18 23:20 01/24/18 23:20 01/24/18 23:20 Intake and Output: 01/25/18 01/25/18 06:59 18:59 Intake Total 1390 Balance 1390 - Medications Medications: Current Medications Piperacillin Sod/Tazobactam Sod (Zosyn 3.375 Gm Iv Premix) 3.375 gm in 50 mls @ 100 mls/hr IVPB Q6H [facility]; Protocol Last Admin: 01/25/18 05:47 Dose: 100 mls/hr Potassium Chloride 20 meq/ (Sodium Chloride) 1,010 mls @ 125 mls/hr IV .Q8H5M [facility] Last Admin: 01/25/18 04:33 Dose: Not Given Ketorolac Tromethamine (Toradol) 15 mg IVP Q6 PRN PRN Reason: Pain, severe (8-10) Last Admin: 01/25/18 01:44 Dose: 15 mg Ondansetron HCl (Zofran Inj) 4 mg IVP Q6 PRN PRN Reason: Nausea/Vomiting Pantoprazole Sodium (Protonix Inj) 40 mg IVP DAILY [facility] Last Admin: 01/24/18 10:34 Dose: 40 mg - Labs Labs: 01/25/18 07:24 01/25/18 07:24 PT 12.3 SECONDS (9.7-12.2) H 01/24/18 07:20 INR 1.1 01/24/18 07:20 APTT 33 SECONDS (21-34) 01/24/18 07:20 - Constitutional Appears: Well, No Acute Distress - Head Exam Head Exam: ATRAUMATIC, NORMOCEPHALIC - Eye Exam Eye Exam: Normal appearance - ENT Exam ENT Exam: Mucous Membranes Moist - Respiratory Exam Respiratory Exam: NORMAL BREATHING PATTERN - Cardiovascular Exam Cardiovascular Exam: RRR - GI/Abdominal Exam GI & Abdominal Exam: Soft. absent: Distended, Guarding, Tenderness - Extremities Exam Extremities Exam: absent: Tenderness - Neurological Exam Neurological Exam: Alert, Awake, Oriented x3 - Skin Skin Exam: Dry, Warm Assessment and Plan - Assessment and Plan (Free Text) Assessment: 47F with GI bleed likely 2/2 diverticulosis Plan: - bleeding scan negative & pt no longer with bloody BMs - cont to monitor H/H - no plan for surgical intervention at this time - d/w Dr. Nirali Teran <Kee Campoverde - Last Filed: 01/25/18 19:51> Objective - Vital Signs/Intake and Output Vital Signs (last 24 hours): Temp Pulse Resp BP Pulse Ox 98.0 F 93 H 18 130/82 98 01/25/18 15:44 01/25/18 18:50 01/25/18 15:44 01/25/18 15:44 01/25/18 15:44 Intake and Output: 01/25/18 01/26/18 18:59 06:59 Intake Total 50 Balance 50 - Medications Medications: Current Medications Piperacillin Sod/Tazobactam Sod (Zosyn 3.375 Gm Iv Premix) 3.375 gm in 50 mls @ 100 mls/hr IVPB Q6H [facility]; Protocol Last Admin: 01/25/18 18:45 Dose: 100 mls/hr Potassium Chloride 20 meq/ (Sodium Chloride) 1,010 mls @ 125 mls/hr IV .Q8H5M [facility] Last Admin: 01/25/18 12:00 Dose: Not Given Ketorolac Tromethamine (Toradol) 15 mg IVP Q6 PRN PRN Reason: Pain, severe (8-10) Last Admin: 01/25/18 13:03 Dose: 15 mg Ondansetron HCl (Zofran Inj) 4 mg IVP Q6 PRN PRN Reason: Nausea/Vomiting Last Admin: 01/25/18 16:28 Dose: 4 mg Pantoprazole Sodium (Protonix Inj) 40 mg IVP DAILY [facility] Last Admin: 01/25/18 10:34 Dose: 40 mg - Labs Labs: 01/25/18 07:24 01/25/18 07:24 PT 12.3 SECONDS (9.7-12.2) H 01/24/18 07:20 INR 1.1 01/24/18 07:20 APTT 33 SECONDS (21-34) 01/24/18 07:20 Attending/Attestation - Attestation I have fully participated in the care of the patient.: Yes I have reviewed all pertinent clinical information, including history, physical exam and plan: Yes Notes (Text): Pt is stable clinically Bleeding scan is negative Hb is stable No surgical intervention required at present Plan d.w pt in detail
--- NOTE | 2018-01-25 13:57 | CP.PCM.CON ---
History of Present Illness - History of Present Illness History of Present Illness: 47yo F admitted with acute rectal bleed. Patient had been at [facility] ED 01/22 for abdominal pain and non-billious and non-bloody vomiting. CT abdomen on 01/22 showed diverticulosis wihtout diverticulitis, moderate segmental dilation, and no bowel obstruction. She was prescribed levofloxacin and flagyl and sent home. At home patient had an episode of dark bloody, mucoid stool yesterday night. She reports having bloody bowel movements with abdominal pain multiple times on day of admission. She is referred for ID eval of + blood c/s x 2 showing coag neg staph PMHx: HTN, cholecystitis s/p lap lyle, uterine fibroids s/p removal, and ovarian cyts PSHx: Cholecystectomy, hysterectomy, L unilateral oopherectomy Allergies: Morphine Social: denies tobacco, alcohol, and recreational drugs No travel No pets works in schools Review of Systems - Review of Systems All systems: reviewed and no additional remarkable complaints except - Constitutional Constitutional: As Per HPI, Anorexia, Malaise - EENT Eyes: absent: As Per HPI, Blind Spots, Blurred Vision, Change in Vision, D ecreased Night Vision, Diplopia, Discharge, Dry Eye, Exophthalmos, Floaters, Irritation, Itchy Eyes, Loss of Peripheral Vision, Pain, Photophobia, Requires Corrective Lenses, Sees Flashes, Spots in Vision, Tunnel Vision, Other Visual Disturbances, Loss of Vision, Other Ears: absent: As Per HPI, Decreased Hearing, Ear Discharge, Ear Pain, Tinnitus, Abnormal Hearing, Disequilibrium, Dizziness, Other Nose/Mouth/Throat: absent: As Per HPI, Epistaxis, Nasal Congestion, Nasal Discharge, Nasal Obstruction, Nasal Trauma, Nose Pain, Post Nasal Drip, Sinus Pain, Sinus Pressure, Bleeding Gums, Change in Voice, Dental Pain, Dry Mouth, Dysphagia, Halitosis, Hoarsness, Lip Swelling, Mouth Lesions, Mouth Pain, Odynophagia, Sore Throat, Throat Swelling, Tongue Swelling, Facial Pain, Neck Pain, Neck Mass, Other - Breasts Breasts: absent: As Per HPI, Change in Shape, Mass, Pain, Nipple Discharge, Nipple Inversion, Skin Changes, Swelling, Other - Cardiovascular Cardiovascular: absent: As Per HPI, Acrocyanosis, Chest Pain, Chest Pain at Rest, Chest Pain with Activity, Claudication, Diaphoresis, Dyspnea, Dyspnea on Exertion, Edema, Irregular Heart Rhythm, Pain Radiating to Arm/Neck/Jaw, Leg Edema, Leg Ulcers, Lightheadedness, Orthopnea, Palpitations, Paroxysmal Nocturnal Dyspnea, Pedal Edema, Radiating Pain, Rapid Heart Rate, Slow Heart Rate, Syncope, Other - Respiratory Respiratory: absent: As Per HPI, Cough, Dyspnea, Hemoptysis, Dyspnea on Exertion, Wheezing, Snoring, Stridor, Pain on Inspiration, Chest Congestion, Excessive Mucous Production, Change in Mucous Color, Pain with Coughing, Other - Gastrointestinal Gastrointestinal: As Per HPI, Abdominal Pain - Genitourinary Genitourinary: absent: As Per HPI, Change in Urinary Stream, Difficulty Ur inating, Dysuria, Flank Pain, Hematuria, Pyuria, Nocturia, Urinary Incontinence, Urinary Frequency, Urinary Hesitance, Urinary Urgency, Voiding Freq/Small Amts, Freq UTI, Hx Renal/Bladder Calculi, Hx /Renal Surgery, Bladder Distension, Other - Reproductive: Female Reproductive:Female: absent: As Per HPI, Amenorrhea, Amenorrhea/ Control, Currently Menstual, Cycle <21 Days, Cycle >35 Days, Cycle Variable, Menses 1-7 Days, Menses >/= 8 Days, Menses Variable, Cycle > 4 Weeks Between, No Menses for 6 Months, Heavy Menses, Light Menses, Normal Menses, Spotting Between Cycles, S/P Hysterectomy, Menopausal, Post Menopausal, Premenarche, Abnormal Vaginal Bleeding, Dysmenorrhea, Dyspareunia, Genital Lesions, Genital Pruritis, Pelvic Pain, Prolapse Symptoms, Sexual Dysfunction, Vaginal Discharge, Vaginal Dryness, Vaginal Odor, Vaginal Pruritis, Other - Menstruation Menstruation: absent: As Per HPI, Amenorrhea, Amenorrhea/ Control, Currently Menstual, Cycle <21 Days, Cycle >35 Days, Cycle Variable, Menses 1-7 Days, Menses >/= 8 Days, Menses Variable, Cycle > 4 Weeks Between, No Menses for 6 Months, Heavy Menses, Light Menses, Normal Menses, Spotting Between Cycles, S/P Hysterectomy, Menopausal, Post Menopausal, Premenarche, Abnormal Vaginal Bleeding, Dysmenorrhea, Other - Musculoskeletal Musculoskeletal: absent: As Per HPI, Abnormal Gait, Arthralgias, Atrophy, Back Pain, Deformity, Joint Swelling, Limited Range of Motion, Loss of Height, Muscle Cramps, Muscle Weakness, Myalgias, Neck Pain, Numbness, Radiating Pain into Limb, Stiffness, Tingling, Other - Integumentary Integumentary: absent: As Per HPI, Acne, Alopecia, Bleeding Lesions, Change in Hair, Change in Nails, Change in Pigmentation, Changing Lesions, Dry Skin, Erythema, Furuncle, Hirsutism, Lesions, New Lesions, Non-Healing Lesions, Photosensitivity, Pruritus, Rash, Skin Pain, Skin Ulcer, Sores, Striae, Swelling, Unusual Bruising, Wounds, Jaundice, Other - Neurological Neurological: absent: As Per HPI, Abnormal Gait, Abnormal Hearing, Abnormal Movements, Abnormal Speech, Behavioral Changes, Burning Sensations, Confusion, Convulsions, Disequilibrium, Dizziness, Numbness, Focal Weakness, Frequent Falls, Headaches, Lack of Coordination, Loss of Vision, Memory Loss, Paresthesias, Radicular Pain, Restless Legs, Sensory Deficit, Syncope, Tingling, Tremor, Vertigo, Weakness, Other Visual Disturbances, Other - Psychiatric Psychiatric: absent: As Per HPI, Abnormal Sleep Pattern, Anhedonia, Anxiety, Auditory Hallucinations, Behavioral Changes, Change in Appetite, Change in Libido, Confusion, Depression, Difficulty Concentrating, Hallucinations, Homicidal Ideation, Hopelessness, Irritability, Memory Loss, Mood Swings, Panic Attacks, Paranoia, Suicidal Ideation, Visual Hallucinations, Tactile Hallucinations, Other - Endocrine Endocrine: absent: As Per HPI, Change in Body Appearance, Change in Libido, Cold Intolorance, Deepening of Voice, Excessive Sweating, Fatigue, Flushing, Heat Intolorance, Increase in Ring/Shoe/Hat Size, Palpitations, Polydipsia, Polyphagia, Polyuria, Other - Hematologic/Lymphatic Hematologic: absent: As Per HPI, Easy Bleeding, Easy Bruising, Lymphadenopathy, Other Past Patient History - Past Medical History & Family History Past Medical History?: Yes Past Family History: Reviewed and not pertinent - Past Social History Smoking Status: Never Smoked Alcohol: None Drugs: Denies Home Situation {Lives}: With Family - CARDIAC Hx Hypertension: Yes - PULMONARY Hx Respiratory Disorders: No - NEUROLOGICAL Hx Neurological Disorder: No - HEENT Hx HEENT Problems: No - RENAL Hx Chronic Kidney Disease: No - ENDOCRINE/METABOLIC Hx Endocrine Disorders: No - HEMATOLOGICAL/ONCOLOGICAL Hx Blood Disorders: No - INTEGUMENTARY Hx Dermatological Problems: No - MUSCULOSKELETAL/RHEUMATOLOGICAL Hx Musculoskeletal Disorders: No Hx Falls: No - GASTROINTESTINAL Hx Gastrointestinal Disorders: No - GENITOURINARY/GYNECOLOGICAL Hx Genitourinary Disorders: No - PSYCHIATRIC Hx Substance Use: No - SURGICAL HISTORY Hx Hysterectomy: Yes - ANESTHESIA Hx Anesthesia: Yes Hx Anesthesia Reactions: No Meds Allergies/Adverse Reactions: Allergies Allergy/AdvReac Type Severity Reaction Status Date / Time morphine Allergy Unknown ANAPHYLAXIS Verified 01/23/18 16:18 - Medications Medications: Current Medications Piperacillin Sod/Tazobactam Sod (Zosyn 3.375 Gm Iv Premix) 3.375 gm in 50 mls @ 100 mls/hr IVPB Q6H [facility]; Protocol Last Admin: 01/25/18 11:35 Dose: 100 mls/hr Potassium Chloride 20 meq/ (Sodium Chloride) 1,010 mls @ 125 mls/hr IV .Q8H5M [facility] Last Admin: 01/25/18 04:33 Dose: Not Given Ketorolac Tromethamine (Toradol) 15 mg IVP Q6 PRN PRN Reason: Pain, severe (8-10) Last Admin: 01/25/18 13:03 Dose: 15 mg Ondansetron HCl (Zofran Inj) 4 mg IVP Q6 PRN PRN Reason: Nausea/Vomiting Pantoprazole Sodium (Protonix Inj) 40 mg IVP DAILY [facility] Last Admin: 01/25/18 10:34 Dose: 40 mg Physical Exam - Constitutional Appears: Non-toxic, Chronically Ill - Head Exam Head Exam: NORMOCEPHALIC - Eye Exam Eye Exam: PERRL. absent: Scleral icterus - ENT Exam ENT Exam: Mucous Membranes Dry, Normal External Ear Exam, Normal Oropharynx - Neck Exam Neck exam: Negative for: Thyromegaly - Respiratory Exam Respiratory Exam: Decreased Breath Sounds, Clear to Auscultation Bilateral - Cardiovascular Exam Cardiovascular Exam: REGULAR RHYTHM, +S1, +S2 - GI/Abdominal Exam GI & Abdominal Exam: Diminished Bowel Sounds, Distended, Guarding, Soft. absent: Organomegaly, Pulsatile Mass, Rebound, Rigid, Tenderness - Rectal Exam Rectal Exam: Deferred - Exam Exam: NORMAL INSPECTION - Extremities Exam Extremities exam: Positive for: pedal pulses present. Negative for: calf tenderness, pedal edema, tenderness - Back Exam Back exam: absent: CVA tenderness (L), CVA tenderness (R), paraspinal tenderness - Neurological Exam Neurological exam: Alert, CN II-XII Intact, Oriented x3, Reflexes Normal - Psychiatric Exam Psychiatric exam: Normal Mood - Skin Skin Exam: Dry Results - Vital Signs Recent Vital Signs: Last Vital Signs Temp 98.1 F 01/24/18 23:20 Pulse 89 01/25/18 07:54 Resp 20 01/24/18 23:20 BP 117/69 01/24/18 23:20 Pulse Ox 97 01/24/18 23:20 - Labs Result Diagrams: 01/25/18 07:24 01/25/18 07:24 Labs: Laboratory Results - last 24 hr 01/24/18 01/25/18 01/25/18 21:36 07:24 07:24 WBC 8.8 RBC 4.24 Hgb 12.5 Hct 36.8 MCV 86.7 MCH 29.4 MCHC 33.9 RDW 13.1 Plt Count 224 MPV 9.2 Sodium 137 Potassium 3.8 Chloride 105 Carbon Dioxide 24 Anion Gap 12 BUN 8 Creatinine 0.7 Est GFR ( Amer) > 60 Est GFR (Non-Af Amer) > 60 POC Glucose (mg/dL) Random Glucose 102 Calcium 8.4 L Phosphorus 2.6 Magnesium 1.9 Total Bilirubin 1.4 H AST 16 ALT 46 Alkaline Phosphatase 68 Total Protein 6.0 L Albumin 3.2 L Globulin 2.8 Albumin/Globulin Ratio 1.1 Urine Color Straw Urine Clarity Clear Urine pH 6.0 Ur Specific Bison 1.009 Urine Protein Negative Urine Glucose (UA) Normal Urine Ketones Trace Urine Blood Negative Urine Nitrate Negative Urine Bilirubin Negative Urine Urobilinogen Normal Ur Leukocyte Esterase Trace Urine WBC (Auto) 1 Urine RBC (Auto) < 1 Ur Squamous Epith Cells < 1 Urine Bacteria Rare 01/25/18 12:10 WBC RBC Hgb Hct MCV MCH MCHC RDW Plt Count MPV Sodium Potassium Chloride Carbon Dioxide Anion Gap BUN Creatinine Est GFR ( Amer) Est GFR (Non-Af Amer) POC Glucose (mg/dL) 89 Random Glucose Calcium Phosphorus Magnesium Total Bilirubin AST ALT Alkaline Phosphatase Total Protein Albumin Globulin Albumin/Globulin Ratio Urine Color Urine Clarity Urine pH Ur Specific Bison Urine Protein Urine Glucose (UA) Urine Ketones Urine Blood Urine Nitrate Urine Bilirubin Urine Urobilinogen Ur Leukocyte Esterase Urine WBC (Auto) Urine RBC (Auto) Ur Squamous Epith Cells Urine Bacteria Assessment & Plan (1) Gastrointestinal hemorrhage Status: Acute (2) Enteritis Status: Acute - Assessment and Plan (Free Text) Assessment: Positive blood cultures most likely due to contamination Plan: etiology of Gastroenteritis unclear- bacterial cause sandro almazan ( entero- invasive ) however patient already received antibiotics from [facility] ER visit A viral induced or toxin induced gastroenteritis is still possible await repeat cultures agree with your plan of care and rx
--- NOTE | 2018-01-25 19:36 | CP.PCM.PN ---
<Navarro Schofield - Last Filed: 01/25/18 20:36> Subjective - Date & Time of Evaluation Date of Evaluation: 01/25/18 Time of Evaluation: 07:50 - Subjective Subjective: Resident Medicine Progress Note Patient seen and examined at bedside. Patient reports to 1 tarry stool from bowel movement this morning, no more bright red blood clots. Patient still complains of abdominal pain and it is controlled with pain medications. She denies fever, chills, shortness of breath, chest pain, nausea, or vomiting. Objective - Vital Signs/Intake and Output Vital Signs (last 24 hours): Temp Pulse Resp BP Pulse Ox 98.0 F 93 H 18 130/82 98 01/25/18 15:44 01/25/18 18:50 01/25/18 15:44 01/25/18 15:44 01/25/18 15:44 Intake and Output: 01/25/18 01/26/18 18:59 06:59 Intake Total 50 Balance 50 - Medications Medications: Current Medications Piperacillin Sod/Tazobactam Sod (Zosyn 3.375 Gm Iv Premix) 3.375 gm in 50 mls @ 100 mls/hr IVPB Q6H [facility]; Protocol Last Admin: 01/25/18 18:45 Dose: 100 mls/hr Potassium Chloride 20 meq/ (Sodium Chloride) 1,010 mls @ 125 mls/hr IV .Q8H5M [facility] Last Admin: 01/25/18 12:00 Dose: Not Given Ketorolac Tromethamine (Toradol) 15 mg IVP Q6 PRN PRN Reason: Pain, severe (8-10) Last Admin: 01/25/18 13:03 Dose: 15 mg Ondansetron HCl (Zofran Inj) 4 mg IVP Q6 PRN PRN Reason: Nausea/Vomiting Last Admin: 01/25/18 16:28 Dose: 4 mg Pantoprazole Sodium (Protonix Inj) 40 mg IVP DAILY [facility] Last Admin: 01/25/18 10:34 Dose: 40 mg - Labs Labs: 01/25/18 07:24 01/25/18 07:24 PT 12.3 SECONDS (9.7-12.2) H 01/24/18 07:20 INR 1.1 01/24/18 07:20 APTT 33 SECONDS (21-34) 01/24/18 07:20 - Constitutional Appears: Well, No Acute Distress - Head Exam Head Exam: ATRAUMATIC, NORMAL INSPECTION - Eye Exam Eye Exam: EOMI, Normal appearance, PERRL Pupil Exam: NORMAL ACCOMODATION - ENT Exam ENT Exam: Mucous Membranes Moist - Neck Exam Neck Exam: Normal Inspection - Respiratory Exam Respiratory Exam: Clear to Ausculation Bilateral, NORMAL BREATHING PATTERN - Cardiovascular Exam Cardiovascular Exam: REGULAR RHYTHM, +S1, +S2. absent: Murmur - GI/Abdominal Exam GI & Abdominal Exam: Soft, Tenderness (left lower quadrant tenderness), Normal Bowel Sounds - Extremities Exam Extremities Exam: Normal Inspection. absent: Joint Swelling, Pedal Edema - Neurological Exam Neurological Exam: Alert, Awake, Oriented x3 - Psychiatric Exam Psychiatric exam: Normal Affect, Normal Mood - Skin Skin Exam: Dry, Normal Color, Warm Assessment and Plan - Assessment and Plan (Free Text) Assessment: Bloody Stool and abdominal pain, assess for cause of potential acute GI bleed: - Admitted to telemetry - GI consulted, Dr. Velázquez. Help appreciated. - Surgery consulted, Dr. Campoverde. Help appreciated - HgB 12.5 today - CT abd/pelvis with IV contrast only 01/22: Moderate segmental dilation of fluid-filled mid small bowel loop in the left mid abdomen with fecalization of small bowel contents. Fluid in the ascending and tranverse colon and distal descending colon. Findings may represent nonspecific acute infectious/in flammatory enterocolitis. No bowel obstruction. Sigmoid diverticulosis without diverticulitis. Moderate hepatomegaly and fatty liver. Small sliding hiatal hernia. - Zosyn 3.375gm Q6h - Stool leukocytes positive - C diff toxin: Negative - Cultures - no salmonella, shigella or campylobacter isolated - Blood culture - Gram positive cocci likely contaminated, repeat pending - CEA, Amylase, lipase normal - GI bleed scan result pending - Barium enema pending HTN: - Home meds held PPx: GI: Protonix 40 mg PO IV daily DVT: AC contraindicated - SCDs Discussed with attending Dr. Mcdowell <Vandana Mcdowell - Last Filed: 01/28/18 09:06> Objective - Vital Signs/Intake and Output Vital Signs (last 24 hours): Temp Pulse Resp BP Pulse Ox 98.1 F 83 20 142/76 99 01/28/18 07:14 01/28/18 07:14 01/28/18 07:14 01/28/18 07:14 01/28/18 07:14 Intake and Output: 01/28/18 01/28/18 06:59 18:59 Intake Total 600 Balance 600 - Medications Medications: Current Medications Acetaminophen (Tylenol 325mg Tab) 650 mg PO Q6 PRN PRN Reason: Pain, Mild (1-3) Piperacillin Sod/Tazobactam Sod (Zosyn 3.375 Gm Iv Premix) 3.375 gm in 50 mls @ 100 mls/hr IVPB Q6H [facility]; Protocol Last Admin: 01/28/18 05:53 Dose: 100 mls/hr Potassium Chloride 20 meq/ (Sodium Chloride) 1,010 mls @ 75 mls/hr IV .[id number] [facility] Last Admin: 01/27/18 18:00 Dose: 75 mls/hr Ondansetron HCl (Zofran Inj) 4 mg IVP Q6 PRN PRN Reason: Nausea/Vomiting Last Admin: 01/25/18 16:28 Dose: 4 mg Pantoprazole Sodium (Protonix Inj) 40 mg IVP DAILY [facility] Last Admin: 01/27/18 09:58 Dose: 40 mg Vitamin A (Vitamin A & D Oint Ud Foilpak) 1 ea TOP Q8 PRN PRN Reason: Pain, Mild (1-3) Last Admin: 01/26/18 17:14 Dose: 1 ea - Labs Labs: 01/28/18 07:19 01/28/18 07:19 PT 12.3 SECONDS (9.7-12.2) H 01/24/18 07:20 INR 1.1 01/24/18 07:20 APTT 33 SECONDS (21-34) 01/24/18 07:20 Attending/Attestation - Attestation I have personally seen and examined this patient.: Yes I have fully participated in the care of the patient.: Yes I have reviewed all pertinent clinical information, including history, physical exam and plan: Yes Notes (Text): Seen and examined Had darker stool this morning On examination has left lower quadrant tenderness No vomiting continue antibiotics and follow stool test Bleeding scan official report pending I spoke to Dr Velázquez. He is recommending for barium study Plan discussed with the resident
[2018-01-26] MEDS: Piperacill/Tazo 3.375gm in Dex 3.375 GM/50 ML BAG IVPB SCH ×4 (00:03→17:44)
[2018-01-26 07:40] LABS: HEMOGLOBIN 12.4 g/dL (11.0-16.0); MEAN CELL VOLUME 86.5 fL (81.0-99.0); MEAN CORPUSCULAR HEMOGLOBIN 29.7 pg (27.0-31.0); MEAN CORPUSCULAR HGB CONC 34.3 g/dL (33.0-37.0); MEAN PLATELET VOLUME 8.9 fL (7.2-11.7); RBC 4.17 Mil/uL (3.80-5.20); RED CELL DISTRIBUTION WIDTH 13.1 % (11.5-14.5); WHITE BLOOD COUNT 6.5 K/uL (4.8-10.8)
[2018-01-26 08:01] LABS: ALB/GLOB RATIO 1.2 (1.0-2.1); ALBUMIN 3.3 g/dL (3.5-5.0); ALT/SGPT 43 U/L (9-52); AST/SGOT 19 U/L (14-36); BLOOD UREA NITROGEN 5 mg/dL (7-17); CALCIUM 8.6 mg/dl (8.6-10.4); GFR NON-AFRICAN AMERICAN > 60
[2018-01-26 08:32] LABS: HEPATITIS B SURFACE AG Negative (NEGATIVE)
[2018-01-26 08:38] LABS: HEPATITIS A IGM NEGATIVE (NEGATIVE); HEPATITIS B CORE AB NEGATIVE (NEGATIVE)
[2018-01-26 08:48] LABS: HEPATITIS C ANTIBODY NEGATIVE (NEGATIVE)
--- NOTE | 2018-01-26 09:50 | CP.PCM.PN ---
Subjective - Date & Time of Evaluation Date of Evaluation: 01/26/18 Time of Evaluation: 06:45 - Subjective Subjective: Surgery Progress note. Dr. Campoverde service Pt seen and examined at bedside this morning. No N/V. Still reports loose BMs. Abd pain improving. No further episodes of rectal bleeding. No new complaints. Objective - Vital Signs/Intake and Output Vital Signs (last 24 hours): Temp Pulse Resp BP Pulse Ox 97.8 F 80 20 130/67 98 01/26/18 07:00 01/26/18 07:43 01/26/18 07:00 01/26/18 07:00 01/26/18 07:00 Intake and Output: 01/26/18 01/26/18 06:59 18:59 Intake Total 1000 Balance 1000 - Medications Medications: Current Medications Acetaminophen (Tylenol 325mg Tab) 650 mg PO Q6 PRN PRN Reason: Pain, Mild (1-3) Piperacillin Sod/Tazobactam Sod (Zosyn 3.375 Gm Iv Premix) 3.375 gm in 50 mls @ 100 mls/hr IVPB Q6H [facility]; Protocol Last Admin: 01/26/18 05:57 Dose: 100 mls/hr Potassium Chloride 20 meq/ (Sodium Chloride) 1,010 mls @ 125 mls/hr IV .Q8H5M [facility] Last Admin: 01/26/18 05:03 Dose: 125 mls/hr Ondansetron HCl (Zofran Inj) 4 mg IVP Q6 PRN PRN Reason: Nausea/Vomiting Last Admin: 01/25/18 16:28 Dose: 4 mg Pantoprazole Sodium (Protonix Inj) 40 mg IVP DAILY [facility] Last Admin: 01/25/18 10:34 Dose: 40 mg - Labs Labs: 01/26/18 07:35 01/26/18 07:35 PT 12.3 SECONDS (9.7-12.2) H 01/24/18 07:20 INR 1.1 01/24/18 07:20 APTT 33 SECONDS (21-34) 01/24/18 07:20 - Constitutional Appears: Well, Non-toxic, No Acute Distress - Head Exam Head Exam: ATRAUMATIC, NORMAL INSPECTION, NORMOCEPHALIC - Eye Exam Eye Exam: EOMI, Normal appearance - ENT Exam ENT Exam: Mucous Membranes Moist - Respiratory Exam Respiratory Exam: NORMAL BREATHING PATTERN. absent: Accessory Muscle Use, Respiratory Distress - Cardiovascular Exam Cardiovascular Exam: absent: JVD - GI/Abdominal Exam GI & Abdominal Exam: Soft. absent: Distended, Firm, Guarding, Tenderness, Rebound - Extremities Exam Extremities Exam: Normal Inspection. absent: Calf Tenderness - Neurological Exam Neurological Exam: Alert, Awake, Oriented x3 - Psychiatric Exam Psychiatric exam: Normal Affect, Normal Mood - Skin Skin Exam: Dry, Intact, Normal Color, Warm Assessment and Plan - Assessment and Plan (Free Text) Assessment: 47yo F with GI bleeding likely secondary to diverticulosis; enterocolitis Plan: - Hb Stable - No further episodes of rectal bleeding - No acute surgical intervention warranted at this time. - f/u Barium Enema as ordered by primary team - f/u GI recs Further recs as per Dr. Nirali Wooten PGY2 surgery
--- NOTE | 2018-01-26 11:46 | CP.PCM.PN ---
Subjective - Date & Time of Evaluation Date of Evaluation: 01/26/18 Time of Evaluation: 08:00 - Subjective Subjective: repeat blood c/s so far neg await Barium enema / GI eval Objective - Vital Signs/Intake and Output Vital Signs (last 24 hours): Temp Pulse Resp BP Pulse Ox 97.8 F 80 20 130/67 98 01/26/18 07:00 01/26/18 07:43 01/26/18 07:00 01/26/18 07:00 01/26/18 07:00 Intake and Output: 01/26/18 01/26/18 06:59 18:59 Intake Total 1000 Balance 1000 - Medications Medications: Current Medications Acetaminophen (Tylenol 325mg Tab) 650 mg PO Q6 PRN PRN Reason: Pain, Mild (1-3) Piperacillin Sod/Tazobactam Sod (Zosyn 3.375 Gm Iv Premix) 3.375 gm in 50 mls @ 100 mls/hr IVPB Q6H [facility]; Protocol Last Admin: 01/26/18 05:57 Dose: 100 mls/hr Potassium Chloride 20 meq/ (Sodium Chloride) 1,010 mls @ 125 mls/hr IV .Q8H5M [facility] Last Admin: 01/26/18 05:03 Dose: 125 mls/hr Ondansetron HCl (Zofran Inj) 4 mg IVP Q6 PRN PRN Reason: Nausea/Vomiting Last Admin: 01/25/18 16:28 Dose: 4 mg Pantoprazole Sodium (Protonix Inj) 40 mg IVP DAILY [facility] Last Admin: 01/26/18 10:38 Dose: 40 mg - Labs Labs: 01/26/18 07:35 01/26/18 07:35 PT 12.3 SECONDS (9.7-12.2) H 01/24/18 07:20 INR 1.1 01/24/18 07:20 APTT 33 SECONDS (21-34) 01/24/18 07:20 - Constitutional Appears: Non-toxic, Chronically Ill - Head Exam Head Exam: NORMOCEPHALIC - Eye Exam Eye Exam: PERRL - ENT Exam ENT Exam: Mucous Membranes Dry - Neck Exam Neck Exam: absent: Lymphadenopathy - Respiratory Exam Respiratory Exam: Decreased Breath Sounds - Cardiovascular Exam Cardiovascular Exam: REGULAR RHYTHM - GI/Abdominal Exam GI & Abdominal Exam: Distended, Soft. absent: Mass - Rectal Exam Rectal Exam: Deferred - Extremities Exam Extremities Exam: absent: Pedal Edema - Back Exam Back Exam: absent: CVA tenderness (L), CVA tenderness (R) - Neurological Exam Neurological Exam: Alert, Awake, CN II-XII Intact - Psychiatric Exam Psychiatric exam: Normal Mood - Skin Skin Exam: absent: Dry Assessment and Plan (1) Gastrointestinal hemorrhage Status: Acute (2) Enteritis Status: Acute - Assessment and Plan (Free Text) Assessment: 47 yo female admitted with rectal bleed started with abd pain, nausea and vomniting stool + leukocytes and occult blood r/o viral vs bacterial improvin g on empiric rx, all cultures neg thus far await GIU eval and follow up will need EGD and colonoscopy now or as out pt
--- NOTE | 2018-01-26 11:55 | NM ---
Date of service: 01/24/2018 PROCEDURE: Nuclear medicine gastrointestinal bleeding scan. HISTORY: GI bleed COMPARISON: None available. TECHNIQUE: 4ccof patient blood was withdrawn and mixed with 25mCi of technetium ultra tagged. Images of the abdomen and pelvis were obtained in the anterior and posterior projection at 1 min intervals over a period of 45 min. FINDINGS: No abnormal extravasation of tracer was observed throughout the exam to indicate active bleeding within or outside the gastrointestinal tract. Physiologic activity was seen in the heart, liver, spleen and blood vessels. IMPRESSION: No evidence of active gastrointestinal bleeding. Concordant findings (preliminary report) provided by [facility].
--- NOTE | 2018-01-26 14:36 | CP.PCM.PN ---
<Radha Parks - Last Filed: 01/26/18 14:53> Subjective - Date & Time of Evaluation Date of Evaluation: 01/26/18 Time of Evaluation: 07:40 - Subjective Subjective: Pt examined at bedside. No acute events overnight. Patient reports she is feeling less nauseous compared to yesterday. Pt also reports continued abdominal pain, worse post prandial, and frequent episodes of loose dark stools. Pt denies passing flatus since yesterday, and has had no episodes of emesis. Pt reports she is tolerating her CLD at a slow rate. Objective - Vital Signs/Intake and Output Vital Signs (last 24 hours): Temp Pulse Resp BP Pulse Ox 97.8 F 86 20 130/67 98 01/26/18 07:00 01/26/18 12:00 01/26/18 07:00 01/26/18 07:00 01/26/18 07:00 Intake and Output: 01/26/18 01/26/18 06:59 18:59 Intake Total 1000 Balance 1000 - Medications Medications: Current Medications Acetaminophen (Tylenol 325mg Tab) 650 mg PO Q6 PRN PRN Reason: Pain, Mild (1-3) Piperacillin Sod/Tazobactam Sod (Zosyn 3.375 Gm Iv Premix) 3.375 gm in 50 mls @ 100 mls/hr IVPB Q6H [facility]; Protocol Last Admin: 01/26/18 12:03 Dose: 100 mls/hr Potassium Chloride 20 meq/ (Sodium Chloride) 1,010 mls @ 125 mls/hr IV .Q8H5M [facility] Last Admin: 01/26/18 05:03 Dose: 125 mls/hr Ondansetron HCl (Zofran Inj) 4 mg IVP Q6 PRN PRN Reason: Nausea/Vomiting Last Admin: 01/25/18 16:28 Dose: 4 mg Pantoprazole Sodium (Protonix Inj) 40 mg IVP DAILY [facility] Last Admin: 01/26/18 10:38 Dose: 40 mg - Labs Labs: 01/26/18 07:35 01/26/18 07:35 PT 12.3 SECONDS (9.7-12.2) H 01/24/18 07:20 INR 1.1 01/24/18 07:20 APTT 33 SECONDS (21-34) 01/24/18 07:20 - Constitutional Appears: Non-toxic, No Acute Distress - Head Exam Head Exam: ATRAUMATIC, NORMAL INSPECTION, NORMOCEPHALIC - Eye Exam Eye Exam: EOMI, Normal appearance - ENT Exam ENT Exam: Mucous Membranes Moist, Normal Exam - Neck Exam Neck Exam: Normal Inspection - Respiratory Exam Respiratory Exam: Clear to Ausculation Bilateral, NORMAL BREATHING PATTERN - Cardiovascular Exam Cardiovascular Exam: REGULAR RHYTHM, +S1, +S2 - GI/Abdominal Exam GI & Abdominal Exam: Soft, Tenderness (LLQ and periumbilical regions tender to palpation), Normal Bowel Sounds. absent: Distended - Extremities Exam Extremities Exam: Normal Inspection. absent: Calf Tenderness, Pedal Edema - Neurological Exam Neurological Exam: Alert, Awake, Normal Gait, Oriented x3 - Psychiatric Exam Psychiatric exam: Normal Affect, Normal Mood - Skin Skin Exam: Dry, Intact, Normal Color, Warm Assessment and Plan - Assessment and Plan (Free Text) Assessment: 47 year old female with PMHx of HTN, fibroids and uterine cyst admitted for evaluation and treatment of vomiting, diarrhea, hematochezia, abdominal pain Plan: Hematochezia/vomiting, abd pain, diarrhea -hgb stable 12.5, continue to monitor -dark stools, fecal occult positive (01/26) -GI bleeding scan negative for active bleed(01/24) -tylenol pain control prn -zofran prn -IVF, NS +K @125/hr -f/u stool studies -c. diff/hep negative -IV Abx, zosyn -continue CLD, ADAT -GI consult, Dr. Velázquez -Sx consult, Dr. Campoverde Bacteremia -coag neg staph x2 Ppx -DVT ppx, SCDs -AC contraindicated in acute GI bleed -GI ppx, protonix 40mg ivp Discussed w/ Dr. Brown -Radha Parks, PGY-1 <Johnathan Brown H - Last Filed: 01/26/18 16:42> Objective - Vital Signs/Intake and Output Vital Signs (last 24 hours): Temp Pulse Resp BP Pulse Ox 97.9 F 73 20 115/75 100 01/26/18 16:02 01/26/18 16:02 01/26/18 16:02 01/26/18 16:02 01/26/18 16:02 Intake and Output: 01/26/18 01/26/18 06:59 18:59 Intake Total 1000 Balance 1000 - Medications Medications: Current Medications Acetaminophen (Tylenol 325mg Tab) 650 mg PO Q6 PRN PRN Reason: Pain, Mild (1-3) Piperacillin Sod/Tazobactam Sod (Zosyn 3.375 Gm Iv Premix) 3.375 gm in 50 mls @ 100 mls/hr IVPB Q6H [facility]; Protocol Last Admin: 01/26/18 12:03 Dose: 100 mls/hr Potassium Chloride 20 meq/ (Sodium Chloride) 1,010 mls @ 125 mls/hr IV .Q8H5M [facility] Last Admin: 01/26/18 15:36 Dose: 125 mls/hr Ondansetron HCl (Zofran Inj) 4 mg IVP Q6 PRN PRN Reason: Nausea/Vomiting Last Admin: 01/25/18 16:28 Dose: 4 mg Pantoprazole Sodium (Protonix Inj) 40 mg IVP DAILY [facility] Last Admin: 01/26/18 10:38 Dose: 40 mg Vitamin A (Vitamin A & D Oint Ud Foilpak) 1 ea TOP Q8 PRN PRN Reason: Pain, Mild (1-3) - Labs Labs: 01/26/18 07:35 01/26/18 07:35 PT 12.3 SECONDS (9.7-12.2) H 01/24/18 07:20 INR 1.1 01/24/18 07:20 APTT 33 SECONDS (21-34) 01/24/18 07:20 Attending/Attestation - Attestation I have personally seen and examined this patient.: Yes I have fully participated in the care of the patient.: Yes I have reviewed all pertinent clinical information, including history, physical exam and plan: Yes Notes (Text): 01/26/18 16:34 Medical attending: Patient was seen and examined by me. Agree with the above note by the medical program specialist. We saw the patient together The patient was not in any acute distress - she was actively ambulating in the hallway She reported the pain in the abdomen was much less than previous. Currently we are continuing with the IVF, IV abx. The CT scan results from yesterday showed that there is an area of colon wall thickening. Explained to the patient that at some point when she is feeling better can consider colonscopy because she has never had one in the past No obstruction seen on the CT scan The patient Hgb is stable at this time. Johnathan Brown 01/26/18 16:41
[2018-01-26] MEDS ORDERED: Vitamins A & D Oint UD Foilpak TOP PRN (15:41)
[2018-01-27] MEDS: Piperacill/Tazo 3.375gm in Dex 3.375 GM/50 ML BAG IVPB SCH ×4 (01:03→18:18)
[2018-01-27 07:45] VITALS: RESP 20
[2018-01-27 08:46] LABS: HEMOGLOBIN 11.8 g/dL (11.0-16.0); MEAN CELL VOLUME 86.6 fL (81.0-99.0); MEAN CORPUSCULAR HEMOGLOBIN 29.3 pg (27.0-31.0); MEAN CORPUSCULAR HGB CONC 33.8 g/dL (33.0-37.0); MEAN PLATELET VOLUME 9.2 fL (7.2-11.7); RBC 4.04 Mil/uL (3.80-5.20); RED CELL DISTRIBUTION WIDTH 13.3 % (11.5-14.5); WHITE BLOOD COUNT 4.3 K/uL (4.8-10.8)
[2018-01-27 09:16] LABS: ALB/GLOB RATIO 1.2 (1.0-2.1); ALBUMIN 3.5 g/dL (3.5-5.0); ALT/SGPT 49 U/L (9-52); AST/SGOT 27 U/L (14-36); BLOOD UREA NITROGEN 3 mg/dL (7-17); CALCIUM 8.8 mg/dl (8.6-10.4); GFR NON-AFRICAN AMERICAN > 60
--- NOTE | 2018-01-27 16:23 | CP.PCM.PN ---
<Radha Parks - Last Filed: 01/27/18 16:34> Subjective - Date & Time of Evaluation Date of Evaluation: 01/27/18 Time of Evaluation: 07:50 - Subjective Subjective: Patient examined at bedside. No acute overnight events. Patient reports significant improvement in abdominal pain compared to yesterday. Pt reports BMs have subsided, although still dark in color. Denies nausea or emesis. Objective - Vital Signs/Intake and Output Vital Signs (last 24 hours): Temp Pulse Resp BP Pulse Ox 98 F 71 20 110/75 95 01/27/18 16:00 01/27/18 16:00 01/27/18 16:00 01/27/18 16:00 01/27/18 16:00 Intake and Output: 01/27/18 01/27/18 06:59 18:59 Intake Total 2270 1300 Balance 2270 1300 - Medications Medications: Current Medications Acetaminophen (Tylenol 325mg Tab) 650 mg PO Q6 PRN PRN Reason: Pain, Mild (1-3) Piperacillin Sod/Tazobactam Sod (Zosyn 3.375 Gm Iv Premix) 3.375 gm in 50 mls @ 100 mls/hr IVPB Q6H [facility]; Protocol Last Admin: 01/27/18 12:10 Dose: 100 mls/hr Potassium Chloride 20 meq/ (Sodium Chloride) 1,010 mls @ 125 mls/hr IV .Q8H5M [facility] Last Admin: 01/27/18 04:29 Dose: 125 mls/hr Ondansetron HCl (Zofran Inj) 4 mg IVP Q6 PRN PRN Reason: Nausea/Vomiting Last Admin: 01/25/18 16:28 Dose: 4 mg Pantoprazole Sodium (Protonix Inj) 40 mg IVP DAILY [facility] Last Admin: 01/27/18 09:58 Dose: 40 mg Vitamin A (Vitamin A & D Oint Ud Foilpak) 1 ea TOP Q8 PRN PRN Reason: Pain, Mild (1-3) Last Admin: 01/26/18 17:14 Dose: 1 ea - Labs Labs: 01/27/18 08:33 01/27/18 08:33 PT 12.3 SECONDS (9.7-12.2) H 01/24/18 07:20 INR 1.1 01/24/18 07:20 APTT 33 SECONDS (21-34) 01/24/18 07:20 - Constitutional Appears: Non-toxic, No Acute Distress - Head Exam Head Exam: ATRAUMATIC, NORMAL INSPECTION, NORMOCEPHALIC - Eye Exam Eye Exam: EOMI, Normal appearance - ENT Exam ENT Exam: Mucous Membranes Moist, Normal Exam - Neck Exam Neck Exam: Full ROM, Normal Inspection - Respiratory Exam Respiratory Exam: Clear to Ausculation Bilateral, NORMAL BREATHING PATTERN - Cardiovascular Exam Cardiovascular Exam: REGULAR RHYTHM. absent: Tachycardia - GI/Abdominal Exam GI & Abdominal Exam: Soft, Tenderness (epigastrium/RLQ tenderness to palpation), Normal Bowel Sounds - Neurological Exam Neurological Exam: Alert, Awake, Normal Gait, Oriented x3 - Skin Skin Exam: Dry, Intact, Normal Color, Warm Assessment and Plan - Assessment and Plan (Free Text) Assessment: 47 year old female with PMHx of HTN, fibroids and uterine cyst admitted for evaluation and treatment of vomiting, diarrhea, hematochezia, abdominal pain Plan: Hematochezia/vomiting, abd pain, diarrhea -hgb stable 11.8, down from 14.8 on admission, continue to monitor -dark stools, fecal occult positive (01/26) -f/u new stool occult ordered(01/27) -GI bleeding scan negative for active bleed(01/24) -tylenol pain control prn -zofran prn -IVF, NS +K @125/hr -f/u stool studies -c. diff/hep negative -IV Abx, zosyn -tolerating soft diet, still having multiple loose dark BMs -GI consult, Dr. Velázquez -Sx consult, Dr. Campoverde Bacteremia -coag neg staph x2 -repeat cxs negative to date Ppx -DVT ppx, SCDs -AC contraindicated in acute GI bleed -GI ppx, protonix 40mg ivp Dispo: Due to persistent dark frequent loose stools and crampy abdominal pain, it was decided patient stay overnight and order another stool occult and follow up with am hgb to ensure no further blood loss. Discussed w/ Dr. Brown -Radha Parks, PGY-1 <Johnathan Brown - Last Filed: 01/27/18 17:42> Objective - Vital Signs/Intake and Output Vital Signs (last 24 hours): Temp Pulse Resp BP Pulse Ox 98 F 71 20 110/75 95 01/27/18 16:00 01/27/18 16:00 01/27/18 16:00 01/27/18 16:00 01/27/18 16:00 Intake and Output: 01/27/18 01/27/18 06:59 18:59 Intake Total 2270 1300 Balance 2270 1300 - Medications Medications: Current Medications Acetaminophen (Tylenol 325mg Tab) 650 mg PO Q6 PRN PRN Reason: Pain, Mild (1-3) Piperacillin Sod/Tazobactam Sod (Zosyn 3.375 Gm Iv Premix) 3.375 gm in 50 mls @ 100 mls/hr IVPB Q6H [facility]; Protocol Last Admin: 01/27/18 12:10 Dose: 100 mls/hr Potassium Chloride 20 meq/ (Sodium Chloride) 1,010 mls @ 75 mls/hr IV .[id number] [facility] Ondansetron HCl (Zofran Inj) 4 mg IVP Q6 PRN PRN Reason: Nausea/Vomiting Last Admin: 01/25/18 16:28 Dose: 4 mg Pantoprazole Sodium (Protonix Inj) 40 mg IVP DAILY [facility] Last Admin: 01/27/18 09:58 Dose: 40 mg Vitamin A (Vitamin A & D Oint Ud Foilpak) 1 ea TOP Q8 PRN PRN Reason: Pain, Mild (1-3) Last Admin: 01/26/18 17:14 Dose: 1 ea - Labs Labs: 01/27/18 08:33 01/27/18 08:33 PT 12.3 SECONDS (9.7-12.2) H 01/24/18 07:20 INR 1.1 01/24/18 07:20 APTT 33 SECONDS (21-34) 01/24/18 07:20 Attending/Attestation - Attestation I have personally seen and examined this patient.: Yes I have fully participated in the care of the patient.: Yes I have reviewed all pertinent clinical information, including history, physical exam and plan: Yes Notes (Text): 01/27/18 17:39 Medical attending: Patient was seen and examined by me, agree with the above note by the resident The patient was not in any acute distress this morning and felt well enough this morning and was wanting to leave. However I was later notified in the afternoon she developed dark stool color. Will recheck CBC again in AM and also another feccocult sample as well. Johnathan Brown
--- NOTE | 2018-01-27 19:04 | CARD ---
APPROVED REPORT Date of service: 01/23/2018 EKG Measurement Heart [id number] [place] [id number] <Conclusion> Normal sinus rhythm Possible Left atrial enlargement Septal infarct, age undetermined Abnormal ECG
[2018-01-28] MEDS: Piperacill/Tazo 3.375gm in Dex 3.375 GM/50 ML BAG IVPB SCH ×2 (00:03→05:53)
--- NOTE | 2018-01-28 07:09 | CP.PCM.PN ---
Objective - Vital Signs/Intake and Output Vital Signs (last 24 hours): Temp Pulse Resp BP Pulse Ox 97.8 F 76 20 106/67 98 01/27/18 23:25 01/27/18 23:25 01/27/18 23:25 01/27/18 23:25 01/27/18 23:25 Intake and Output: 01/28/18 01/28/18 06:59 18:59 Intake Total 600 Balance 600 - Medications Medications: Current Medications Acetaminophen (Tylenol 325mg Tab) 650 mg PO Q6 PRN PRN Reason: Pain, Mild (1-3) Piperacillin Sod/Tazobactam Sod (Zosyn 3.375 Gm Iv Premix) 3.375 gm in 50 mls @ 100 mls/hr IVPB Q6H [facility]; Protocol Last Admin: 01/28/18 05:53 Dose: 100 mls/hr Potassium Chloride 20 meq/ (Sodium Chloride) 1,010 mls @ 75 mls/hr IV .[id number] [facility] Last Admin: 01/27/18 18:00 Dose: 75 mls/hr Ondansetron HCl (Zofran Inj) 4 mg IVP Q6 PRN PRN Reason: Nausea/Vomiting Last Admin: 01/25/18 16:28 Dose: 4 mg Pantoprazole Sodium (Protonix Inj) 40 mg IVP DAILY [facility] Last Admin: 01/27/18 09:58 Dose: 40 mg Vitamin A (Vitamin A & D Oint Ud Foilpak) 1 ea TOP Q8 PRN PRN Reason: Pain, Mild (1-3) Last Admin: 01/26/18 17:14 Dose: 1 ea - Labs Labs: 01/27/18 08:33 01/27/18 08:33 PT 12.3 SECONDS (9.7-12.2) H 01/24/18 07:20 INR 1.1 01/24/18 07:20 APTT 33 SECONDS (21-34) 01/24/18 07:20
[2018-01-28 07:26] LABS: HEMOGLOBIN 12.4 g/dL (11.0-16.0); MEAN CELL VOLUME 86.6 fL (81.0-99.0); MEAN CORPUSCULAR HEMOGLOBIN 29.7 pg (27.0-31.0); MEAN CORPUSCULAR HGB CONC 34.3 g/dL (33.0-37.0); MEAN PLATELET VOLUME 9.5 fL (7.2-11.7); RBC 4.16 Mil/uL (3.80-5.20); RED CELL DISTRIBUTION WIDTH 13.3 % (11.5-14.5); WHITE BLOOD COUNT 4.6 K/uL (4.8-10.8)
[2018-01-28 07:55] LABS: ALB/GLOB RATIO 1.3 (1.0-2.1); ALBUMIN 3.8 g/dL (3.5-5.0); ALT/SGPT 57 U/L (9-52); AST/SGOT 29 U/L (14-36); BLOOD UREA NITROGEN 4 mg/dL (7-17); GFR NON-AFRICAN AMERICAN > 60
[2018-01-28 08:15] VITALS: BP 142/76; PULSE 83; TEMP 98.1; O2SAT 99
--- NOTE | 2018-01-28 14:25 | CP.PCM.DIS ---
<Adin Mejía M - Last Filed: 01/28/18 14:24> Provider - Provider Date of Admission: 01/23/18 14:12 Attending physician: Johnathan Bronw DO Primary care physician: [facility] Consults: 01/23/18 15:26 Gastroenterology Consult Routine Comment: Consulting Provider: Alaina Velázquez Consulting Physician: Alaina Velázquez Reason for Consult: Bloody stools 01/23/18 16:48 General Surgery Consult Routine Comment: Consulting Provider: Kee Campoverde Consulting Physician: Kee Campoverde Reason for Consult: Abdominal pain/rectal bleeding, r/o ischemic bowel and obstruction 01/24/18 19:42 Physician Consult Routine Comment: Consulting Provider: Hansel Stevens Consulting Physician: Hansel Stevens Reason for Consult: coag negstaph aures/bloody diarrhea Time Spent in preparation of Discharge (in minutes): 45 Diagnosis - Discharge Diagnosis (1) Enteritis Status: Acute Comment: Antiobitics, resolved symptoms (2) Gastrointestinal hemorrhage Status: Acute Comment: Guac negative, stable H/H, outpatient follow up Hospital Course - Lab Results Lab Results: Micro Results 01/25/18 11:10 Blood-Venous Blood Culture - Preliminary NO GROWTH AFTER 3 DAYS 01/26/18 13:48 Stool Stool Culture - Final NO SALMONELLA, SHIGELLA OR CAMPYLOBACTER ISOLATED. 01/25/18 12:00 Blood-Venous Blood Culture - Preliminary NO GROWTH AFTER 48 HOURS 01/23/18 17:37 Stool Ova and Parasite Concentrate Exam - Final 01/24/18 21:36 Urine,Clean Catch Urine Culture - Final No Growth (<1,000 CFU/ML) 01/23/18 17:26 Blood-Venous Blood Culture - Final Coagulase Neg Staphylococcus 01/23/18 17:26 Blood-Venous Gram Stain - Final 01/23/18 17:26 Blood-Venous S.aureus & Coag-Neg Staph PNA FISH - Final 01/23/18 17:26 Blood-Venous Blood Culture - Final Coagulase Neg Staphylococcus 01/23/18 17:26 Blood-Venous Gram Stain - Final 01/23/18 17:37 Stool Stool Culture - Final NO SALMONELLA, SHIGELLA OR CAMPYLOBACTER ISOLATED. Most Recent Lab Values WBC 4.6 K/uL (4.8-10.8) L 01/28/18 07:19 RBC 4.16 Mil/uL (3.80-5.20) 01/28/18 07:19 Hgb 12.4 g/dL (11.0-16.0) 01/28/18 07:19 Hct 36.1 % (34.0-47.0) 01/28/18 07:19 MCV 86.6 fL (81.0-99.0) 01/28/18 07:19 MCH 29.7 pg (27.0-31.0) 01/28/18 07:19 MCHC 34.3 g/dL (33.0-37.0) 01/28/18 07:19 RDW 13.3 % (11.5-14.5) 01/28/18 07:19 Plt Count 260 K/uL (130-400) 01/28/18 07:19 MPV 9.5 fL (7.2-11.7) 01/28/18 07:19 Neut % (Auto) 77.0 % (50.0-75.0) H 01/23/18 13:00 Lymph % (Auto) 16.5 % (20.0-40.0) L 01/23/18 13:00 [place] % (Auto) 6.0 % (0.0-10.0) 01/23/18 13:00 Eos % (Auto) 0.2 % (0.0-4.0) 01/23/18 13:00 Baso % (Auto) 0.3 % (0.0-2.0) 01/23/18 13:00 Neut # (Auto) 10.4 K/uL (1.8-7.0) H 01/23/18 13:00 Lymph # (Auto) 2.2 K/uL (1.0-4.3) 01/23/18 13:00 [place] # (Auto) 0.8 K/uL (0.0-0.8) 01/23/18 13:00 Eos # (Auto) 0.0 K/uL (0.0-0.7) 01/23/18 13:00 Baso # (Auto) 0.0 K/uL (0.0-0.2) 01/23/18 13:00 PT 12.3 SECONDS (9.7-12.2) H 01/24/18 07:20 INR 1.1 01/24/18 07:20 APTT 33 SECONDS (21-34) 01/24/18 07:20 Sodium 139 mmol/L (132-148) 01/28/18 07:19 Potassium 4.0 mmol/L (3.6-5.2) 01/28/18 07:19 Chloride 106 mmol/L (98-107) 01/28/18 07:19 Carbon Dioxide 25 mmol/L (22-30) 01/28/18 07:19 Anion Gap 12 (10-20) 01/28/18 07:19 BUN 4 mg/dL (7-17) L 01/28/18 07:19 Creatinine 0.7 mg/dL (0.7-1.2) 01/28/18 07:19 Est GFR ( Amer) > 60 01/28/18 07:19 Est GFR (Non-Af Amer) > 60 01/28/18 07:19 POC Glucose (mg/dL) 89 mg/dL (65-110) 01/25/18 12:10 Random Glucose 96 mg/dL (65-105) 01/28/18 07:19 Calcium 9.0 mg/dl (8.6-10.4) 01/28/18 07:19 Phosphorus 4.4 mg/dL (2.5-4.5) 01/28/18 07:19 Magnesium 2.0 mg/dL (1.6-2.3) 01/28/18 07:19 Total Bilirubin 0.6 mg/dL (0.2-1.3) 01/28/18 07:19 AST 29 U/L (14-36) 01/28/18 07:19 ALT 57 U/L (9-52) H 01/28/18 07:19 Alkaline Phosphatase 74 U/L (38-126) 01/28/18 07:19 Total Protein 6.7 g/dL (6.3-8.3) 01/28/18 07:19 Albumin 3.8 g/dL (3.5-5.0) 01/28/18 07:19 Globulin 2.9 gm/dL (2.2-3.9) 01/28/18 07:19 Albumin/Globulin Ratio 1.3 (1.0-2.1) 01/28/18 07:19 Amylase 56 U/L (30-110) 01/24/18 07:20 Lipase 79 U/L (23-300) 01/24/18 07:20 Carcinoembryonic Ag 1.2 ng/mL (0-3.0) 01/24/18 07:20 Urine Color Straw (YELLOW) 01/24/18 21:36 Urine Clarity Clear (Clear) 01/24/18 21:36 Urine pH 6.0 (5.0-8.0) 01/24/18 21:36 Ur Specific [place] 1.009 (1.003-1.030) 01/24/18 21:36 Urine Protein Negative mg/dL (NEGATIVE) 01/24/18 21:36 Urine Glucose (UA) Normal mg/dL (Normal) 01/24/18 21:36 Urine Ketones Trace mg/dL (NEGATIVE) 01/24/18 21:36 Urine Blood Negative (NEGATIVE) 01/24/18 21:36 Urine Nitrate Negative (NEGATIVE) 01/24/18 21:36 Urine Bilirubin Negative (NEGATIVE) 01/24/18 21:36 Urine Urobilinogen Normal mg/dL (0.2-1.0) 01/24/18 21:36 Ur Leukocyte Esterase Trace Roel/uL (Negative) 01/24/18 21:36 Urine WBC (Auto) 1 /hpf (0-5) 01/24/18 21:36 Urine RBC (Auto) < 1 /hpf (0-3) 01/24/18 21:36 Ur Squamous Epith Cells < 1 /hpf (0-5) 01/24/18 21:36 Urine Bacteria Rare (<OCC) 01/24/18 21:36 Stool Occult Blood Negative (NEGATIVE) 01/27/18 20:10 Stool Leukocytes, Qual Positive (NEGATIVE) H 01/23/18 17:37 C. difficile Ag & Toxin Negative (NEGATIVE) 01/25/18 15:20 Hepatitis A IgM Ab Negative (NEGATIVE) 01/25/18 19:40 Hep Bs Antigen Negative (NEGATIVE) 01/25/18 19:40 Hep B Core IgM Ab Negative (NEGATIVE) 01/25/18 19:40 Hepatitis C Antibody Negative (NEGATIVE) 01/25/18 19:40 HIV 1&2 Antibody Screen Negative (NEGATIVE) 01/25/18 19:40 Blood Type O POSITIVE 01/23/18 13:23 Antibody Screen Negative 01/23/18 13:23 - Hospital Course Hospital Course: Patient is a 47 year old female with PMHx HTN, cholecystitis, who presents with nausea, abdominal, diarrhea, and rectal bleeding. Patient presented to [facility] ED on 01/22 with abdominal pain and NBNB vomiting. Patient was prescribed levofloxacin and flagyl and sent home, though did not fill the prescriptions prior to returning to ED today. After leaving ED patient states she continued to have pain and went to use the toilet and noticed red blood. Patient went to PMD who performed a rectal exam and copious bright red blood came out and patient was subsequently sent to ED. She continues to have dark brown loose stools with jelly-like consistency, but also will have bouts where she goes to the toilet and only blood comes out. Patient states the blood is more light pink than dark red. She no longer feels nauseous and has not vomited, but does continue to have abdominal pain that is most severe in the upper abdomen, but diffuse. Patient has abdominal pain while moving bowels, but does not have any pain in the anus/rectum. Pain is relieved following BMs. Patient also feels dizzy like the room is spinning. Patient did take two Aleve following ED, though she does not take NSAIDs regularly. Patient denies sick contacts or recent travel. She is a vegetarian. Denies any red-colored foods, otc supplements including mutlivitamins, mag, or Fe. Denies eating jake lettuce. Denies any AC/anti-platelet meds. Pt went through menopause in 2016 and has no vaginal bleeding. Has never experienced similar rectal bleeding. Of note, she does also admit to increased consipation over the last 2-3 months. She denies dysuria, flank pain, fevers, back pain, chest pain, palpitations. During hospital stay, patient had CT abd/pelvis with IV contrast only 01/22: Moderate segmental dilation of fluid-filled mid small bowel loop in the left mid abdomen with fecalization of small bowel contents. Fluid in the ascending and tranverse colon and distal descending colon. Findings may represent nonspecific acute infectious/inflammatory enterocolitis. No bowel obstruction. Sigmoid diverticulosis without diverticulitis. Moderate hepatomegaly and fatty liver. Small sliding hiatal hernia. GI bleed scan: no active bleeding Patient was bactermic, coagulase neg staphylococcus. Treated w/ antibiotics. Repeat Cultures were negative. Patient had stable H/H, repeat stool occult was negative. Symptoms improved. Patient was stable for discharge. Above is only a brief summary of patient stay during in the hospital. See EMR for full details. Below are discharge instructions provided to the patient upon discharge. Patient is stable for discharge per Dr. Brown. 1) Please take the following medication for 3 additional days. You will receive a prescription and you will need to fill it at your local pharmacy. - Ciprofloxacin 250 1 tablet twice daily, 12 hours apart 2) Additionally please eat yogurt with probiotics twice daily to prevent possible stomach upset as a result of the antibiotic. 3) Please stop all blood pressure medications you maybe taking. Your blood pressure during stay was within limits. Please consult your primary doctor on possibly restarting these medications. 4) Please follow up with your primary doctor at the [facility] within a week. 5) Additionally, you will likely need a colonoscopy. Please talk to your primary doctor and make arrangements at your convenience. 6) If any symptoms arise or worsen, please visit your [facility]. 7) Pleas take care. Thank you! 1) por favor tome el siguiente medicamento por 3 parish adicional[place]. Usted recibir azael receta mdica y deber llenarla en mora farmacia local. -Ciprofloxacina 250 1 tableta dos veces al da, 12 horas de diferencia 2) adems, por favor coma yogur con probiticos dos veces al da para prevenir el malestar estomacal posible cyrus resultado del antibitico. 3) por favor, detenga todos los medicamentos para la presin arterial que chencho vez est tomando. Mora presin arterial nani la estancia estaba dentro de los lmites. Consulte a mora mdico de cabecera para posiblemente reiniciar estos medicamentos. 4) por favor, siga con mora mdico de [place] en la clnica de la [facility] dentro de azael semana. 5) adems, es probable que necesites azael colonoscopia. Por favor, hable con mora mdico de tena y lorri arreglos a mora conveniencia. 6) si algn sntoma surge o empeora, por favor visite [facility] [place]. 7) las peticiones se cuidan. Jennifer! Discharge Exam - Head Exam Head Exam: ATRAUMATIC, NORMAL INSPECTION, NORMOCEPHALIC - Eye Exam Eye Exam: EOMI, Normal appearance Pupil Exam: NORMAL ACCOMODATION - ENT Exam ENT Exam: Mucous Membranes Moist - Respiratory Exam Respiratory Exam: Clear to PA & Lateral, UNREMARKABLE. absent: Rales, Rhonchi, Wheezes - Cardiovascular Exam Cardiovascular Exam: +S1, +S2 - GI/Abdominal Exam GI & Abdominal Exam: Normal Bowel Sounds, Soft. absent: Hyperactive Bowel Sounds, Hypoactive Bowel Sounds - Extremities Exam Extremities exam: full ROM, normal inspection Additional comments: no calf tenderness, no pedal edema - Back Exam Back exam: absent: CVA tenderness (L), CVA tenderness (R) - Neurological Exam Neurological exam: Alert, Normal Gait, Oriented x3 - Psychiatric Exam Psychiatric exam: Normal Affect, Normal Mood - Skin Skin Exam: Dry, Intact, Normal Color, Warm Discharge Plan - Discharge Medications Prescriptions: RX: Ciprofloxacin [Cipro] 250 mg PO Q12H #6 tab - Follow Up Plan Condition: GUARDED Disposition: HOME/ ROUTINE Instructions: Ciprofloxacin (Systemic), Colonoscopy (DC), Gastrointestinal Bleeding (DC) Additional Instructions: Patient is stable for discharge per Dr. Brown. 1) Please take the following medication for 3 additional days. You will receive a prescription and you will need to fill it at your local pharmacy. - Ciprofloxacin 250 1 tablet twice daily, 12 hours apart 2) Additionally please eat yogurt with probiotics twice daily to prevent possible stomach upset as a result of the antibiotic. 3) Please stop all blood pressure medications you maybe taking. Your blood pressure during stay was within limits. Please consult your primary doctor on possibly restarting these medications. 4) Please follow up with your primary doctor at the [facility] within a week. 5) Additionally, you will likely need a colonoscopy. Please talk to your primary doctor and make arrangements at your convenience. 6) If any symptoms arise or worsen, please visit your [facility]. 7) Pleas take care. Thank you! 1) por favor tome el siguiente medicamento por 3 parish adicional[place]. Usted recibir azael receta mdica y deber llenarla en mora farmacia local. -Ciprofloxacina 250 1 tableta dos veces al da, 12 horas de diferencia 2) adems, por favor coma yogur con probiticos dos veces al da para prevenir el malestar estomacal posible cyrus resultado del antibitico. 3) por favor, detenga todos los medicamentos para la presin arterial que chencho vez est tomando. Omra presin arterial nani la estancia estaba dentro de los lmites. Consulte a mora mdico de cabecera para posiblemente reiniciar estos medicamentos. 4) por favor, siga con mora mdico de [place] en la clnica de la comun[facility] de [place] dentro de azael semana. 5) adems, es probable que necesites azael colonoscopia. Por favor, hable con mora mdico de tena y lorri arreglos a mora conveniencia. 6) si algn sntoma surge o empeora, por favor visite mora centro mdico de emergencia del armario. 7) las peticiones se cuidan. Jennifer! <Johnathan Brown - Last Filed: 01/28/18 17:33> Provider - Provider Date of Admission: 01/23/18 14:12 Attending physician: Johnathan Brown DO Consults: 01/23/18 15:26 Gastroenterology Consult Routine Comment: Consulting Provider: Alaina Velázquez Consulting Physician: Alaina Velázquez Reason for Consult: Bloody stools 01/23/18 16:48 General Surgery Consult Routine Comment: Consulting Provider: Kee Campoverde Consulting Physician: Kee Campoverde Reason for Consult: Abdominal pain/rectal bleeding, r/o ischemic bowel and obstruction 01/24/18 19:42 Physician Consult Routine Comment: Consulting Provider: Hansel Stevens Consulting Physician: Hansel Stevens Reason for Consult: coag negstaph aures/bloody diarrhea Hospital Course - Lab Results Lab Results: Micro Results 01/25/18 12:00 Blood-Venous Blood Culture - Preliminary NO GROWTH AFTER 3 DAYS 01/25/18 11:10 Blood-Venous Blood Culture - Preliminary NO GROWTH AFTER 3 DAYS 01/26/18 13:48 Stool Stool Culture - Final NO SALMONELLA, SHIGELLA OR CAMPYLOBACTER ISOLATED. 01/23/18 17:37 Stool Ova and Parasite Concentrate Exam - Final 01/24/18 21:36 Urine,Clean Catch Urine Culture - Final No Growth (<1,000 CFU/ML) 01/23/18 17:26 Blood-Venous Blood Culture - Final Coagulase Neg Staphylococcus 01/23/18 17:26 Blood-Venous Gram Stain - Final 01/23/18 17:26 Blood-Venous S.aureus & Coag-Neg Staph PNA FISH - Final 01/23/18 17:26 Blood-Venous Blood Culture - Final Coagulase Neg Staphylococcus 01/23/18 17:26 Blood-Venous Gram Stain - Final 01/23/18 17:37 Stool Stool Culture - Final NO SALMONELLA, SHIGELLA OR CAMPYLOBACTER ISOLATED. Most Recent Lab Values WBC 4.6 K/uL (4.8-10.8) L 01/28/18 07:19 RBC 4.16 Mil/uL (3.80-5.20) 01/28/18 07:19 Hgb 12.4 g/dL (11.0-16.0) 01/28/18 07:19 Hct 36.1 % (34.0-47.0) 01/28/18 07:19 MCV 86.6 fL (81.0-99.0) 01/28/18 07:19 MCH 29.7 pg (27.0-31.0) 01/28/18 07:19 MCHC 34.3 g/dL (33.0-37.0) 01/28/18 07:19 RDW 13.3 % (11.5-14.5) 01/28/18 07:19 Plt Count 260 K/uL (130-400) 01/28/18 07:19 MPV 9.5 fL (7.2-11.7) 01/28/18 07:19 Neut % (Auto) 77.0 % (50.0-75.0) H 01/23/18 13:00 Lymph % (Auto) 16.5 % (20.0-40.0) L 01/23/18 13:00 [place] % (Auto) 6.0 % (0.0-10.0) 01/23/18 13:00 Eos % (Auto) 0.2 % (0.0-4.0) 01/23/18 13:00 Baso % (Auto) 0.3 % (0.0-2.0) 01/23/18 13:00 Neut # (Auto) 10.4 K/uL (1.8-7.0) H 01/23/18 13:00 Lymph # (Auto) 2.2 K/uL (1.0-4.3) 01/23/18 13:00 [place] # (Auto) 0.8 K/uL (0.0-0.8) 01/23/18 13:00 Eos # (Auto) 0.0 K/uL (0.0-0.7) 01/23/18 13:00 Baso # (Auto) 0.0 K/uL (0.0-0.2) 01/23/18 13:00 PT 12.3 SECONDS (9.7-12.2) H 01/24/18 07:20 INR 1.1 01/24/18 07:20 APTT 33 SECONDS (21-34) 01/24/18 07:20 Sodium 139 mmol/L (132-148) 01/28/18 07:19 Potassium 4.0 mmol/L (3.6-5.2) 01/28/18 07:19 Chloride 106 mmol/L (98-107) 01/28/18 07:19 Carbon Dioxide 25 mmol/L (22-30) 01/28/18 07:19 Anion Gap 12 (10-20) 01/28/18 07:19 BUN 4 mg/dL (7-17) L 01/28/18 07:19 Creatinine 0.7 mg/dL (0.7-1.2) 01/28/18 07:19 Est GFR ( Amer) > 60 01/28/18 07:19 Est GFR (Non-Af Amer) > 60 01/28/18 07:19 POC Glucose (mg/dL) 89 mg/dL (65-110) 01/25/18 12:10 Random Glucose 96 mg/dL (65-105) 01/28/18 07:19 Calcium 9.0 mg/dl (8.6-10.4) 01/28/18 07:19 Phosphorus 4.4 mg/dL (2.5-4.5) 01/28/18 07:19 Magnesium 2.0 mg/dL (1.6-2.3) 01/28/18 07:19 Total Bilirubin 0.6 mg/dL (0.2-1.3) 01/28/18 07:19 AST 29 U/L (14-36) 01/28/18 07:19 ALT 57 U/L (9-52) H 01/28/18 07:19 Alkaline Phosphatase 74 U/L (38-126) 01/28/18 07:19 Total Protein 6.7 g/dL (6.3-8.3) 01/28/18 07:19 Albumin 3.8 g/dL (3.5-5.0) 01/28/18 07:19 Globulin 2.9 gm/dL (2.2-3.9) 01/28/18 07:19 Albumin/Globulin Ratio 1.3 (1.0-2.1) 01/28/18 07:19 Amylase 56 U/L (30-110) 01/24/18 07:20 Lipase 79 U/L (23-300) 01/24/18 07:20 Carcinoembryonic Ag 1.2 ng/mL (0-3.0) 01/24/18 07:20 Urine Color Straw (YELLOW) 01/24/18 21:36 Urine Clarity Clear (Clear) 01/24/18 21:36 Urine pH 6.0 (5.0-8.0) 01/24/18 21:36 Ur Specific [place] 1.009 (1.003-1.030) 01/24/18 21:36 Urine Protein Negative mg/dL (NEGATIVE) 01/24/18 21:36 Urine Glucose (UA) Normal mg/dL (Normal) 01/24/18 21:36 Urine Ketones Trace mg/dL (NEGATIVE) 01/24/18 21:36 Urine Blood Negative (NEGATIVE) 01/24/18 21:36 Urine Nitrate Negative (NEGATIVE) 01/24/18 21:36 Urine Bilirubin Negative (NEGATIVE) 01/24/18 21:36 Urine Urobilinogen Normal mg/dL (0.2-1.0) 01/24/18 21:36 Ur Leukocyte Esterase Trace Roel/uL (Negative) 01/24/18 21:36 Urine WBC (Auto) 1 /hpf (0-5) 01/24/18 21:36 Urine RBC (Auto) < 1 /hpf (0-3) 01/24/18 21:36 Ur Squamous Epith Cells < 1 /hpf (0-5) 01/24/18 21:36 Urine Bacteria Rare (<OCC) 01/24/18 21:36 Stool Occult Blood Negative (NEGATIVE) 01/27/18 20:10 Stool Leukocytes, Qual Positive (NEGATIVE) H 01/23/18 17:37 C. difficile Ag & Toxin Negative (NEGATIVE) 01/25/18 15:20 Hepatitis A IgM Ab Negative (NEGATIVE) 01/25/18 19:40 Hep Bs Antigen Negative (NEGATIVE) 01/25/18 19:40 Hep B Core IgM Ab Negative (NEGATIVE) 01/25/18 19:40 Hepatitis C Antibody Negative (NEGATIVE) 01/25/18 19:40 HIV 1&2 Antibody Screen Negative (NEGATIVE) 01/25/18 19:40 Blood Type O POSITIVE 01/23/18 13:23 Antibody Screen Negative 01/23/18 13:23 Attending/Attestation - Attestation I have personally seen and examined this patient.: Yes I have fully participated in the care of the patient.: Yes I have reviewed all pertinent clinical information, including history, physical exam and plan: Yes Notes (Text): 01/28/18 17:30 Medical attending: Patient was seen and examined by me. Agree with the above note by the resident The patient was not in miles cute distress today. The repeat stool study was negative for blood Also the CBC showed Hgb was stable as well. It did not show a drop in Hgb The patient was ambulating in the room Like previously mentioned we advised the patient that she should consider getting colonscopy outpatient once she is able to get her insurance back again. Also there are RX for abx as well as a script for return to work this next Friday thank you Johnathan Brown
== END 2018-01-28 12:23 | disposition home or self-care (01) | DRG 378 ==
LOC: C.ER 12:05 → C.5S 14:12
PROVIDERS: ADMIT Hospitalist; ATTEND Hospitalist
DX: K57.31 Diverticulosis of large intestine without perforation or abscess with bleeding (principal); Z68.41 Body mass index [BMI] 40.0-44.9, adult; R78.81 Bacteremia; K52.9 Noninfective gastroenteritis and colitis, unspecified; K44.9 Diaphragmatic hernia without obstruction or gangrene; I10 Essential (primary) hypertension; E66.01 Morbid (severe) obesity due to excess calories